=== PATIENT | female | born 1935 | race Caucasian/White ===

== ENCOUNTER 2022-11-03 16:35 | Inpatient (IN) ==
[2022-11-03] MEDS ORDERED: SODIUM CHLORIDE 0.9% 1000ML 1,000 ML IV ONE (17:17)
[2022-11-03] MEDS ORDERED: ALBUT/IPRATROP 3MG/0.5MG NEB 3 ML VIAL NEB STA (17:17)
[2022-11-03] MEDS ORDERED: methylPREDNISolone 125 MG/2 ML VIAL IV STA (17:17)
[2022-11-03] MEDS ORDERED: guaiFENesin 600 MG TABCR PO STA (17:18)
[2022-11-03] MEDS ORDERED: FAMOTIDINE 20MG IV PUSH 20 MG/5 ML SYR IV STA (17:19)
[2022-11-03] MEDS ORDERED: CEFEPIME 2,000 MG/20 ML VIAL IV STA (17:20)
--- NOTE | 2022-11-03 18:08 | XRay Report ---
XR chest 1V portable HISTORY: Sepsis COMPARISON: Chest 06/12/2015. FINDINGS: No pneumothorax. There are low lung volumes with mild elevation of the right hemidiaphragm. Mild central pulmonary vascular congestion without overt edema. Mitral annulus calcifications are no casey. No new focal lung consolidations. Severe degenerative changes and deformity within the right vandana ulder again noted. There are cervical spinal fusion hardware. The heart is mildly enlarged. IMPRESSION: Mild central pulmonary vascular congestion without overt edema ACT 112: Negative or not required by law. Electronically signed by: Ish Hutson M.D. 11/03/2022 6:05 PM
[2022-11-03] MEDS ORDERED: guaiFENesin SUGAR FREE 100 MG/5 ML UDC PO STA (18:15)
[2022-11-03] MEDS ORDERED: VANCOMYCIN CONSULT ACTIVE PRN ×2 (18:15→22:25)
[2022-11-03] MEDS ORDERED: VANCOMYCIN HCL 1,000 MG in SODIUM CHLORIDE 0.9% 500 ML IV ONE (18:15)
[2022-11-03 18:19] LABS: Base Excess VBG 2.4 mEq/L; HCO3 VBG 25 mmol/L; Oxygen Saturation VBG 95.1 %; PCO2 VBG 32 mmHg (38-50); PO2 VBG 67 mmHg
[2022-11-03 18:27] LABS: Basophils # (auto) 0.09 K/uL (0-0.2); Basophils % (auto) 0.4 %; Hematocrit (blood only) 40.1 % (34.1-44.9); Hemoglobin 14.3 g/dl (12.0-16.0); Immature Granulocytes # (auto) 0.27 K/uL (0.00-0.02); Immature Granulocytes % (auto) 1.2 %; Lymphocytes # (auto) 0.78 K/uL (1.2-3.4); Lymphocytes % (auto) 3.5 %; Mean Corpuscular Hemoglobin 32.1 pg (25.0-34.0); Mean Corpuscular Hgb Conc 35.7 g/dL (32.0-36.0); Mean Corpuscular Volume 90.1 fL (80.0-100.0); Mean Platelet Volume 8.9 fL (9.4-12.3); Monocytes # (auto) 1.65 K/uL (0.24-0.82); Monocytes % (auto) 7.4 %; Neutrophils % (auto) 87.5 %; Platelet Count 662 K/uL (130-400); RDW Coefficient of Variation 13.7 % (11.5-14.5); RDW Standard Deviation 45.1 fL (36.4-46.3); Red Blood Count 4.45 M/uL (3.93-5.22); White Blood Count 22.19 K/ul (4.8-10.8)
[2022-11-03 18:51] LABS: Influenza B virus by PCR Negative (Neg); RSV by PCR Negative (Neg); SARS CoV2 RNA(COVID-19) Ceph NEGATIVE (Negative)
[2022-11-03 18:54] LABS: Influenza A virus by PCR Positive (Neg)
[2022-11-03 19:09] LABS: Albumin Level 3.2 gm/dl (3.4-5.0); BUN Creatinine Ratio 31.7 (10-20); Bilirubin Direct 0.3 mg/dl (0-0.2); Bilirubin,Total 1.2 mg/dl (0.2-1.0); Calcium 8.2 mg/dl (8.5-10.1); Creatinine Clr Calc Pharmacy 38.5 ml/min; Est GFR (African American) 93.5 ml/min; Est GFR (Non-African American) 80.6 ml/min; Magnesium 1.7 mg/dl (1.7-2.4); Phosphorus 3.2 mg/dl (2.5-4.9); Potassium 4.5 mmol/L (3.5-5.1); Total Protein 6.4 gm/dl (6.0-8.3); Troponin I High Sensitivity 18.9 pg/ml (0-14)
--- NOTE | 2022-11-03 19:58 | History & Physical Report ---
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 Guaifenesin extended release 12 mg p.o. twice daily Nasal cannula oxygen, titrate to keep pulse ox around 95% Hyponatremia/SIADH- Sodium 125, serum osmolality 256, urine osmolality 446 Sodium chloride 1 g p.o. twice daily Fluid restriction 1500 mils Follow serial laboratories Atrial fibrillation/hypertension/CAD- The patient will be admitted to telemetry for serial cardiac enzymes, serial EKG's, cardiac rhythm monitoring. Continue apixaban, diltiazem, metoprolol tartrate Troponin 18.9 on admission, with follow-up 25.2. CKD stage III- Follow-up serially Ambulatory dysfunction- Will need PT/OT consult Hyperlipidemia- Continue atorvastatin History of Present Illness Chief Complaint: The patient is transferred to the emergency department from her acute rehab facility at [facility], due to worsening shortness of breath and new hypoxia. The patient has been diagnosed with influenza A a few days ago, and was noted to have worsening cough and chest congestion over the past week. She had been treated with Lasix briefly due to hypoxia, and possible volume overload, but this was discontinued when the patient became hyponatremic and appeared to be hypovolemic. Patient required 5 L nasal cannula to improve oxygenation today, and was referred to the ED for assessment. Primary Care Provider: Jose Mobley The patient is a 87-year-old female with a past medical history including chronic anticoagulation for atrial fibrillation, hyperlipidemia, hypertension, COPD, GERD and hyponatremia. She presents to the emergency department as noted above, with primary concerns related to hypoxia, hyponatremia, influenza A positivity and an elevated troponin. Significant abnormal laboratories: WBC 22.19, platelet 662, sodium 125, glucose 74, serum osmolality 256, urine osmolality 446, highly sensitive troponin 18.9, with follow-up 25.2, and albumin 3.2. Influenza A positive Patient is COVID-19 negative and influenza B and RSV negative Allergies Allergy/AdvReac Type Severity Reaction Status Date / Time No Known Allergies Allergy Unverified 11/03/22 22:17 Home Medications Medication Instructions Recorded Confirmed Type acetaminophen 325 mg tablet 650 mg PO Q4 PRN Pain 11/03/22 11/03/22 History (Tylenol) apixaban 2.5 mg tablet (Eliquis) 2.5 mg PO Q12 11/03/22 11/03/22 History atorvastatin 10 mg tablet 10 mg PO HS 11/03/22 11/03/22 History benzonatate 100 mg capsule 100 mg PO TID PRN Cough 11/03/22 11/03/22 History cefdinir 300 mg capsule 300 mg PO Q12H 11/03/22 11/03/22 History diltiazem HCl 180 mg 180 mg PO DAILY 11/03/22 11/03/22 History capsule,extended release 24 hr docusate sodium 100 mg capsule 100 mg PO BID 11/03/22 11/03/22 History fluticasone propionate 110 2 puff inhalation BID 11/03/22 11/03/22 History mcg/actuation HFA aerosol inhaler guaifenesin 100 mg/5 mL oral liquid 200 mg PO QID 11/03/22 11/03/22 History levalbuterol tartrate 45 2 inh inhalation Q4 11/03/22 11/03/22 History mcg/actuation aerosol inhaler lisinopril 5 mg tablet 5 mg PO DAILY 11/03/22 11/03/22 History metoprolol tartrate 25 mg tablet 25 mg PO Q8 11/03/22 11/03/22 History ondansetron HCl 4 mg tablet 4 mg PO Q4 PRN Nausea 11/03/22 11/03/22 History pantoprazole 40 mg tablet,delayed 49 mg PO HS 11/03/22 11/03/22 History release polyethylene glycol 3350 17 gram 17 g PO .QLUNCH PRN Constipation 11/03/22 11/03/22 History oral powder packet (Miralax) sennosides 8.6 mg-docusate sodium 1 tab-cap PO DAILY PRN Constipation 11/03/22 11/03/22 History 50 mg tablet (Senna-S) zinc sulfate 220 mg capsule 220 mg PO DAILY 11/03/22 11/03/22 History Past Med/Surg History Medical History (Updated 11/04/22 @ 03:55 by Bulmaro Jj MD) Atrial fibrillation Hyperlipidemia Hypertension On apixaban therapy Family History Other Family history non-contributory Social History Smoking Status: Never smoker Preferred Language: Grenadian Feels Safe at Home: Yes Review of Systems Review of Systems: The patient denies chest pain, palpitations, lower extremity swelling, sore throat, fevers, chills, sweats, nausea, vomiting, diarrhea , constipation, abdominal pain, pelvic pain, blood in urine or stool, dysuria, urinary frequency or urgency, loss of consciousness, rash, abnormal bruising or bleeding, focal weakness, numbness or tingling in arms or legs, back or neck pain, or night sweats. The review of systems is otherwise negative other than for that already noted above, and at least 10 systems have been reviewed. Physical Exam Physical Exam: The patient is awake, alert and oriented 3, well developed and well nourished, normocephalic and atraumatic, lying in bed and in no acute distress. HEENT--PERRL, EOMI, mucous membranes and oropharynx dry. Neck--supple. No JVD. No bruits. Thyroid normal, trachea midline, no adenopathy. Heart--normal S1 and S2. No murmurs, rubs or gallops. Lungs--coarse rhonchi, right base greater than left. No respiratory distress, no accessory muscle use. Abdomen--normal bowel sounds and soft. Nontender. Nondistended, no hernias or masses, no organomegaly. Extremities--no cyanosis or clubbing. No edema. Dermatologic--normal skin turgor, normal color, no abnormal lymph nodes, no rash. Neurologic--cranial nerves II through XII grossly intact. Rheumatologic--limited exam Psychiatric--normal affect. Results & Data Results & Data ([facility]) Vital Signs (Past 12 Hours) Vital Signs Temp Pulse Resp BP Pulse Ox O2 Del Method O2 Flow Rate 11/03/22 18:59 99 Oxyhood 10 11/03/22 18:59 10 L Non-rebreather 11/03/22 18:00 112 H 21 11/03/22 18:00 102/61 11/03/22 17:50 114 H 25 H 94 Oxymask 10 11/03/22 17:45 109/66 11/03/22 17:45 104 H 28 H 94 11/03/22 17:40 97 H 27 H 95 Oxymask 10 11/03/22 17:30 103 H 28 H 92 Oxymask 10 11/03/22 17:20 104 H 27 H 11/03/22 17:10 110 H 29 H 94 Oxymask 10 11/03/22 17:00 98 H 28 H 92 Oxymask 10 11/03/22 16:54 108 H 26 H 92 11/03/22 16:48 Oxymask 10 11/03/22 16:48 36.5 C 104 H 20 111/70 95 Oxymask 10 Laboratory Results Laboratory Results WBC 22.19 K/ul (4.8-10.8) H 11/03/22 18:16 RBC 4.45 M/uL (3.93-5.22) 11/03/22 18:16 Hgb 14.3 g/dl (12.0-16.0) 11/03/22 18:16 Hct 40.1 % (34.1-44.9) 11/03/22 18:16 MCV 90.1 fL (80.0-100.0) 11/03/22 18:16 MCH 32.1 pg (25.0-34.0) 11/03/22 18:16 MCHC 35.7 g/dL (32.0-36.0) 11/03/22 18:16 RDW Std Deviation 45.1 fL (36.4-46.3) 11/03/22 18:16 RDW Coeff of Jian 13.7 % (11.5-14.5) 11/03/22 18:16 Plt Count 662 K/uL (130-400) H 11/03/22 18:16 MPV 8.9 fL (9.4-12.3) L 11/03/22 18:16 Immature Gran % (Auto) 1.2 % 11/03/22 18:16 Neut % (Auto) 87.5 % 11/03/22 18:16 Lymph % (Auto) 3.5 % 11/03/22 18:16 [place] % (Auto) 7.4 % 11/03/22 18:16 Eos % (Auto) 0.0 % 11/03/22 18:16 Baso % (Auto) 0.4 % 11/03/22 18:16 Neut # (Auto) 19.40 K/uL (1.4-6.5) H 11/03/22 18:16 Lymph # (Auto) 0.78 K/uL (1.2-3.4) L 11/03/22 18:16 [place] # (Auto) 1.65 K/uL (0.24-0.82) H 11/03/22 18:16 Eos # (Auto) 0.00 K/uL (0-0.50) 11/03/22 18:16 Baso # (Auto) 0.09 K/uL (0-0.2) 11/03/22 18:16 Immature Gran # (Auto) 0.27 K/uL (0.00-0.02) H 11/03/22 18:16 VBG pH 7.50 (7.36-7.41) H 11/03/22 18:11 VBG pCO2 32 mmHg (38-50) L 11/03/22 18:11 VBG pO2 67 mmHg 11/03/22 18:11 VBG HCO3 25 mmol/L 11/03/22 18:11 VBG O2 Saturation 95.1 % 11/03/22 18:11 VBG Base Excess 2.4 mEq/L 11/03/22 18:11 Sodium 125 mmol/L (136-145) L 11/03/22 18:16 Potassium 4.5 mmol/L (3.5-5.1) 11/03/22 18:16 Chloride 89 mmol/L (98-107) L 11/03/22 18:16 Carbon Dioxide 23 mmol/L (21-32) 11/03/22 18:16 Anion Gap 13 (3-11) H 11/03/22 18:16 BUN 20 mg/dl (6-23) 11/03/22 18:16 Creatinine 0.63 mg/dl (0.6-1.2) 11/03/22 18:16 Est Cr Clr Drug Dosing 38.5 ml/min 11/03/22 18:16 Est GFR ( Amer) 93.5 ml/min 11/03/22 18:16 Est GFR (Non-Af Amer) 80.6 ml/min 11/03/22 18:16 BUN/Creatinine Ratio 31.7 (10-20) H 11/03/22 18:16 Glucose 74 mg/dl (70-99(Fasting)) 11/03/22 18:16 Osmolality 256 mOsm/kg (280-300) L 11/03/22 18:16 Lactate 1.4 mmol/L (0.4-2.0) 11/03/22 18:16 Calcium 8.2 mg/dl (8.5-10.1) L 11/03/22 18:16 Phosphorus 3.2 mg/dl (2.5-4.9) 11/03/22 18:16 Magnesium 1.7 mg/dl (1.7-2.4) 11/03/22 18:16 Total Bilirubin 1.2 mg/dl (0.2-1.0) H 11/03/22 18:16 Direct Bilirubin 0.3 mg/dl (0-0.2) H 11/03/22 18:16 AST 25 U/L (13-39) 11/03/22 18:16 ALT 28 U/L (7-52) 11/03/22 18:16 Alkaline Phosphatase 121 U/L (34-104) H 11/03/22 18:16 Troponin I High Sens 25.2 pg/ml (0-14) H 11/03/22 23:19 B-Natriuretic Peptide 239 pg/ml (0-100) H 11/03/22 18:16 Total Protein 6.4 gm/dl (6.0-8.3) 11/03/22 18:16 Albumin 3.2 gm/dl (3.4-5.0) L 11/03/22 18:16 Lipase 17 U/L (11-82) 11/03/22 18:16 Procalcitonin 0.44 ng/ml (0-0.5) 11/03/22 18:16 Urine Color Dark Yellow 11/03/22 19:53 Urine Appearance Clear (Clear) 11/03/22 19:53 Urine pH 5.0 (4.5-7.5) 11/03/22 19:53 Ur Specific [place] 1.020 (1.000-1.030) 11/03/22 19:53 Urine Protein 1+ (Negative) H 11/03/22 19:53 Urine Glucose (UA) Negative (Negative) 11/03/22 19:53 Urine Ketones 1+ (Negative) H 11/03/22 19:53 Urine Blood Negative (Negative) 11/03/22 19:53 Urine Nitrite Negative (Negative) 11/03/22 19:53 Urine Bilirubin Negative (Negative) 11/03/22 19:53 Urine Urobilinogen Negative (Negative) 11/03/22 19:53 Ur Leukocyte Esterase Trace (Negative) H 11/03/22 19:53 Urine WBC (Auto) 1-5 /hpf (0-5) 11/03/22 19:53 Urine RBC (Auto) 0-4 /hpf (0-4) 11/03/22 19:53 U Hyaline Cast (Auto) 1-5 /lpf (0-5) 11/03/22 19:53 U Epithel Cells (Auto) 20-30 /lpf (0-5) H 11/03/22 19:53 Urine Bacteria (Auto) Negative (Negative) 11/03/22 19:53 Urine Osmolality 446 mOsm/kg (500-800) L 11/03/22 19:53 Ur Random Sodium 15 mmol/L 11/03/22 19:53 SARS-CoV-2 (PCR) NEGATIVE (Negative) 11/03/22 18:05 Influenza Type A (PCR) Positive (Neg) A* 11/03/22 18:05 Influenza Type B (PCR) Negative (Neg) 11/03/22 18:05 RSV (RT-PCR) Negative (Neg) 11/03/22 18:05 Impressions Chest X-Ray 11/03/22 17:16 XR chest 1V portable HISTORY: Sepsis COMPARISON: Chest 06/12/2015. FINDINGS: No pneumothorax. There are low lung volumes with mild elevation of the right hemidiaphragm. Mild central pulmonary vascular congestion without overt edema. Mitral annulus calcifications are noted. No new focal lung consolidations. Severe degenerative changes and deformity within the right shoulder again noted. There are cervical spinal fusion hardware. The heart is mildly enlarged. IMPRESSION: Mild central pulmonary vascular congestion without overt edema ACT 112: Negative or not required by law. Electronically signed by: Ish Hutson M.D. 11/03/2022 6:05 PM Code Status & VTE Plan Code Status Full code VTE Prophylaxis Plan VTE Prophylaxis will be ordered: Yes (1) Pneumonia Laterality: right Lung location: middle lobe of lung Pneumonia type: due to unspecified organism Qualified Code(s): J18.9 - Pneumonia, unspecified organism
--- NOTE | 2022-11-03 20:28 | Emergency Department Note ---
Impression & Plan Acute respiratory failure with hypoxia, Leukocytosis, Hyponatremia, Influenza A, Pneumonia ED Provider Note NAME: GUILLERMINA CARDENAS AGE: 87 SEX: F ARRIVES VIA: Ambulance INFORMANT: Patient ED PROVIDER(S): Krishna Alejandra MD CHIEF COMPLAINT: SOB, referred. PLAN: Disposition: Admit MEDICAL DECISION MAKING: The patient is a pleasant 87-year-old woman with a past medical history of atrial fibrillation on Eliquis, hypertension, hyperlipidemia who presents to the emergency department via EMS from her acute rehab facility at [facility] where she has been for ambulatory dysfunction for evaluation of worsening shortness of breath and new hypoxia in the setting of being diagnosed with influenza A 2 days ago in the setting of having cough and congestion over the past week which did have some initial improvement but then over the past several days has declined. The patient has had nausea and decreased oral intake and diarrhea. She had initially been treated with Lasix due to her hypoxia and possible hypervolemia setting of A. fib but after 2 days of treatment this was discontinued as she appeared dehydrated and was not eating and drinking. Her sodium was also noted to decline down to 122 suspected to be related to her poor oral intake but did improve with oral salt tabs to 127 but then decline again to 124. Her O2 requirements gradually increased up to 5 L nasal cannula and so given her continued decline for the emergency department for further management. On arrival the patient is ill-appearing but no acute distress, afebrile with h eart rate in the 100s and vital signs otherwise stable. Her O2 saturation remained stable at 95% with oxime mask as she was noted to be mouth breathing. Patient has scant wheeze of bilateral lung zhang with rhonchi noted in the right mid lung zhang. No significant increased work of breathing. She appears clinically dry with dry cracked mucous membranes and skin tenting. EKG demonstrates atrial fibrillation without overt acute ischemia. Chest x-ray demonstrates vascular congestion however per my review does show interstitial thickening increased in the right midlung which given the context of the patient's presentation including influenza and leukocytosis suspicious for pneumonia. WBC 22K with neutrophil predominance and left shift. H/H within normal limits. Platelets 600K nonspecific. VBG with pH of 7.5 and PCO2 of 32. Chemistry without metabolic acidosis. Sodium 125 with normal glucose. Osmolality 256 with urine osmolality pending. Lactic acid 1.4, within normal limits. Total bili 1.2 with direct 11.3, nonspecific. AST and ALT are normal. Alk phos marginally above normal at 121. High-sensitivity troponin 18.9, nonspecific and BNP 239 nonspecific. Blood cultures have been drawn and the patient was treated with empiric cefepime and vancomycin. Additionally given Solu-Medrol and DuoNeb for component of bronchospasm. Case was discussed [place] [facility] [place], who will evaluate the patient for admission. Triage Nursing notes reviewed and agree them. Prior medical records reviewed Vital Signs: reviewed Differential diagnosis: Reactive airway disease, pneumonia, pneumothorax, COPD, CHF, infections, cardiac ischemia, pulmonary embolism, musculoskeletal, gastrointestinal, as well as other pathologies. ER treatment provided: See below. Diagnostics interpreted by me: ECG: Atrial fibrillation with RVR, 116 bpm, no ectopy, no overt ST elevation or depression, QTC 464, QRS 78. Cardiac Monitoring: An order for continuous cardiac monitoring was placed and demonstrated Atrial fibrillation with RVR, 116 bpm, no ectopy. Laboratory studies: See below Imaging studies: See below Consultation(s): Dr. Jj [facility] [place] HPI: The patient is a pleasant 87-year-old woman with a past medical history of atrial fibrillation on Eliquis, hypertension, hyperlipidemia who presents to the emergency department via EMS from her acute rehab facility at [facility] where she has been for ambulatory dysfunction for evaluation of worsening shortness of breath and new hypoxia in the setting of being diagnosed with influenza A 2 days ago in the setting of having cough and congestion over the past week which did have some initial improvement but then over the past several days has declined. The patient has had nausea and decreased oral intake and diarrhea. She had initially been treated with Lasix due to her hypoxia and possible hypervolemia setting of A. fib but after 2 days of treatment this was discontinued as she appeared dehydrated and was not eating and drinking. Her sodium was also noted to decline down to 122 suspected to be related to her poor oral intake but did improve with oral salt tabs to 127 but then decline again to 124. Her O2 requirements gradually increased up to 5 L nasal cannula and so given her continued decline for the emergency department for further management. ROS: See above HPI for pertinent positives & negatives. A total of 10 systems reviewed and were otherwise negative. VITALS:See Below PHYSICAL EXAMINATION: GENERAL: Awake, alert, ill-appearing, in no distress HENT: Normocephalic, atraumatic. Oropharynx with dry mucous membranes and o therwise unremarkable. EYES: Normal conjunctiva. Sclera non-icteric. NECK: Supple. No nuchal rigidity. FROM. No JVD. RESPIRATORY: Scant wheeze of bilateral lung zhang with rhonchi noted in the right mid lung zhang. No significant increased work of breathing. CARDIAC: Tachycardic rate, irregular rhythm. Extremities warm and well perfused. Pulses equal. ABDOMEN: Soft, non-distended. No tenderness to palpation. No rebound or guarding. No masses. RECTAL: Deferred. MUSCULOSKELETAL: Chest examination reveals no tenderness. The back is symmetrical on inspection without obvious abnormality. There is no CVA tenderness to palpation. No joint edema. LOWER EXTREMITIES: Calves are equal size bilaterally and non-tender. No edema. No discoloration. NEURO: Normal sensorium. No sensory or motor deficits noted. SKIN: Dry/tenting. No rash or jaundice noted. ED COURSE: Critical Care: I have personally spent greater than 35 minutes of critical care time in the direct management of this patient. This includes bedside care, interpretation of diagnostic studies, and testing, discussion with consultants, patient, and family members, and other required patient management activities. This 35 minutes is in excess of all separately billable procedures. Krishna Alejandra MD Past Med/Surg History Medical History Atrial fibrillation Hyperlipidemia Hypertension On apixaban therapy Family History Other Family history non-contributory Social History Smoking Status: Never smoker Preferred Language: Austrian Feels Safe at Home: Yes Allergies Allergies Allergy/AdvReac Type Severity Reaction Status Date / Time No Known Allergies Allergy Unverified 11/03/22 22:17 Home Meds Home Medications Medication Instructions Recorded Confirmed acetaminophen 325 mg tablet 650 mg PO Q4 PRN Pain 11/03/22 11/03/22 (Tylenol) apixaban 2.5 mg tablet (Eliquis) 2.5 mg PO Q12 11/03/22 11/03/22 atorvastatin 10 mg tablet 10 mg PO HS 11/03/22 11/03/22 benzonatate 100 mg capsule 100 mg PO TID PRN Cough 11/03/22 11/03/22 cefdinir 300 mg capsule 300 mg PO Q12H 11/03/22 11/03/22 diltiazem HCl 180 mg 180 mg PO DAILY 11/03/22 11/03/22 capsule,extended release 24 hr docusate sodium 100 mg capsule 100 mg PO BID 11/03/22 11/03/22 fluticasone propionate 110 2 puff inhalation BID 11/03/22 11/03/22 mcg/actuation HFA aerosol inhaler guaifenesin 100 mg/5 mL oral liquid 200 mg PO QID 11/03/22 11/03/22 levalbuterol tartrate 45 2 inh inhalation Q4 11/03/22 11/03/22 mcg/actuation aerosol inhaler lisinopril 5 mg tablet 5 mg PO DAILY 11/03/22 11/03/22 metoprolol tartrate 25 mg tablet 25 mg PO Q8 11/03/22 11/03/22 ondansetron HCl 4 mg tablet 4 mg PO Q4 PRN Nausea 11/03/22 11/03/22 pantoprazole 40 mg tablet,delayed 49 mg PO HS 11/03/22 11/03/22 release polyethylene glycol 3350 17 gram 17 g PO .QLUNCH PRN Constipation 11/03/22 11/03/22 oral powder packet (Miralax) sennosides 8.6 mg-docusate sodium 1 tab-cap PO DAILY PRN Constipation 11/03/22 11/03/22 50 mg tablet (Senna-S) zinc sulfate 220 mg capsule 220 mg PO DAILY 11/03/22 11/03/22 Results & Data (ED) Vital Signs Vital Signs - 24 hr 11/03/22 16:48 11/03/22 16:48 11/03/22 16:54 Temperature 36.5 C Temperature Source Oral Pulse Rate 104 H 108 H Pulse Rate from SpO2 Sensor 115 H Pulse Rhythm Regular Pulse Strength Normal Respiratory Rate 20 26 H Respiratory Effort / Characteristics Non-Labored Spontaneous Non-Labored Spontaneous Respiratory Depth Normal Normal Respiratory Pattern Regular Regular Blood Pressure 111/70 Blood Pressure Mean 83 Blood Pressure Position Lying Pulse Oximetry 95 92 Oxygen Delivery Method Oxymask Oxymask Oxygen Flow Rate 10 10 Sepsis Recent Fever Within 48 Hours No Sepsis New/Unexplained Change in Mental Status N/A Sepsis Action Taken by Nursing No Action Required 11/03/22 17:00 11/03/22 17:10 11/03/22 17:20 Temperature Temperature Source Pulse Rate 98 H 110 H 104 H Pulse Rate from SpO2 Sensor 113 H 106 H Pulse Rhythm Pulse Strength Respiratory Rate 28 H 29 H 27 H Respiratory Effort / Characteristics Respiratory Depth Respiratory Pattern Blood Pressure Blood Pressure Mean Blood Pressure Position Pulse Oximetry 92 94 Oxygen Delivery Method Oxymask Oxymask Oxygen Flow Rate 10 10 Sepsis Recent Fever Within 48 Hours Sepsis New/Unexplained Change in Mental Status Sepsis Action Taken by Nursing 11/03/22 17:30 11/03/22 17:40 11/03/22 17:45 Temperature Temperature Source Pulse Rate 103 H 97 H 104 H Pulse Rate from SpO2 Sensor 114 H 111 H 102 H Pulse Rhythm Pulse Strength Respiratory Rate 28 H 27 H 28 H Respiratory Effort / Characteristics Respiratory Depth Respiratory Pattern Blood Pressure Blood Pressure Mean Blood Pressure Position Pulse Oximetry 92 95 94 Oxygen Delivery Method Oxymask Oxymask Oxygen Flow Rate 10 10 Sepsis Recent Fever Within 48 Hours Sepsis New/Unexplained Change in Mental Status Sepsis Action Taken by Nursing 11/03/22 17:45 11/03/22 17:50 11/03/22 18:00 Temperature Temperature Source Pulse Rate 114 H Pulse Rate from SpO2 Sensor 108 H Pulse Rhythm Pulse Strength Respiratory Rate 25 H Respiratory Effort / Characteristics Respiratory Depth Respiratory Pattern Blood Pressure 109/66 102/61 Blood Pressure Mean 80 74 Blood Pressure Position Pulse Oximetry 94 Oxygen Delivery Method Oxymask Oxygen Flow Rate 10 Sepsis Recent Fever Within 48 Hours Sepsis New/Unexplained Change in Mental Status Sepsis Action Taken by Nursing 11/03/22 18:00 11/03/22 18:59 11/03/22 18:59 Temperature Temperature Source Pulse Rate 112 H Pulse Rate from SpO2 Sensor Pulse Rhythm Pulse Strength Respiratory Rate 21 Respiratory Effort / Characteristics Respiratory Depth Respiratory Pattern Blood Pressure Blood Pressure Mean Blood Pressure Position Pulse Oximetry 10 L 99 Oxygen Delivery Method Non-rebreather Oxyhood Oxygen Flow Rate 10 Sepsis Recent Fever Within 48 Hours Sepsis New/Unexplained Change in Mental Status Sepsis Action Taken by Nursing Laboratory Data Attestation: I reviewed the patient's lab results. Result diagrams: 11/03/22 18:16 11/03/22 18:16 Lab Results 11/03/22 11/03/22 11/03/22 Range/Units 18:05 18:11 18:16 WBC (4.8-10.8) K/ul RBC (3.93-5.22) M/uL Hgb (12.0-16.0) g/dl Hct (34.1-44.9) % MCV (80.0-100.0) fL MCH (25.0-34.0) pg MCHC (32.0-36.0) g/dL RDW Std Deviation (36.4-46.3) fL RDW Coeff of Jian (11.5-14.5) % Plt Count (130-400) K/uL MPV (9.4-12.3) fL Immature Gran % (Auto) % Neut % (Auto) % Lymph % (Auto) % Rock % (Auto) % Eos % (Auto) % Baso % (Auto) % Neut # (Auto) (1.4-6.5) K/uL Lymph # (Auto) (1.2-3.4) K/uL Rock # (Auto) (0.24-0.82) K/uL Eos # (Auto) (0-0.50) K/uL Baso # (Auto) (0-0.2) K/uL Immature Gran # (Auto) (0.00-0.02) K/uL VBG pH 7.50 H (7.36-7.41) VBG pCO2 32 L (38-50) mmHg VBG pO2 67 mmHg VBG HCO3 25 mmol/L VBG O2 Saturation 95.1 % VBG Base Excess 2.4 mEq/L Sodium 125 L (136-145) mmol/L Potassium 4.5 (3.5-5.1) mmol/L Chloride 89 L (98-107) mmol/L Carbon Dioxide 23 (21-32) mmol/L Anion Gap 13 H (3-11) BUN 20 (6-23) mg/dl Creatinine 0.63 (0.6-1.2) mg/dl Est Cr Clr Drug Dosing 38.5 ml/min Est GFR ( Amer) 93.5 ml/min Est GFR (Non-Af Amer) 80.6 ml/min BUN/Creatinine Ratio 31.7 H (10-20) Glucose 74 (70-99(Fasting)) mg/dl Osmolality (280-300) mOsm/kg Lactate (0.4-2.0) mmol/L Calcium 8.2 L (8.5-10.1) mg/dl Phosphorus 3.2 (2.5-4.9) mg/dl Magnesium 1.7 (1.7-2.4) mg/dl Total Bilirubin 1.2 H (0.2-1.0) mg/dl Direct Bilirubin 0.3 H (0-0.2) mg/dl AST 25 (13-39) U/L ALT 28 (7-52) U/L Alkaline Phosphatase 121 H (34-104) U/L Troponin I High Sens 18.9 H (0-14) pg/ml B-Natriuretic Peptide (0-100) pg/ml Total Protein 6.4 (6.0-8.3) gm/dl Albumin 3.2 L (3.4-5.0) gm/dl Lipase 17 (11-82) U/L Procalcitonin (0-0.5) ng/ml Urine Color Urine Appearance (Clear) Urine pH (4.5-7.5) Ur Specific [place] (1.000-1.030) Urine Protein (Negative) Urine Glucose (UA) (Negative) Urine Ketones (Negative) Urine Blood (Negative) Urine Nitrite (Negative) Urine Bilirubin (Negative) Urine Urobilinogen (Negative) Ur Leukocyte Esterase (Negative) Urine WBC (Auto) (0-5) /hpf Urine RBC (Auto) (0-4) /hpf U Hyaline Cast (Auto) (0-5) /lpf U Epithel Cells (Auto) (0-5) /lpf Urine Bacteria (Auto) (Negative) Urine Osmolality (500-800) mOsm/kg Ur Random Sodium mmol/L SARS-CoV-2 (PCR) NEGATIVE (Negative) Influenza Type A (PCR) Positive A* (Neg) Influenza Type B (PCR) Negative (Neg) RSV (RT-PCR) Negative (Neg) 11/03/22 11/03/22 11/03/22 Range/Units 18:16 18:16 18:16 WBC 22.19 H (4.8-10.8) K/ul RBC 4.45 (3.93-5.22) M/uL Hgb 14.3 (12.0-16.0) g/dl Hct 40.1 (34.1-44.9) % MCV 90.1 (80.0-100.0) fL MCH 32.1 (25.0-34.0) pg MCHC 35.7 (32.0-36.0) g/dL RDW Std Deviation 45.1 (36.4-46.3) fL RDW Coeff of Jian 13.7 (11.5-14.5) % Plt Count 662 H (130-400) K/uL MPV 8.9 L (9.4-12.3) fL Immature Gran % (Auto) 1.2 % Neut % (Auto) 87.5 % Lymph % (Auto) 3.5 % Rock % (Auto) 7.4 % Eos % (Auto) 0.0 % Baso % (Auto) 0.4 % Neut # (Auto) 19.40 H (1.4-6.5) K/uL Lymph # (Auto) 0.78 L (1.2-3.4) K/uL Rock # (Auto) 1.65 H (0.24-0.82) K/uL Eos # (Auto) 0.00 (0-0.50) K/uL Baso # (Auto) 0.09 (0-0.2) K/uL Immature Gran # (Auto) 0.27 H (0.00-0.02) K/uL VBG pH (7.36-7.41) VBG pCO2 (38-50) mmHg VBG pO2 mmHg VBG HCO3 mmol/L VBG O2 Saturation % VBG Base Excess mEq/L Sodium (136-145) mmol/L Potassium (3.5-5.1) mmol/L Chloride (98-107) mmol/L Carbon Dioxide (21-32) mmol/L Anion Gap (3-11) BUN (6-23) mg/dl Creatinine (0.6-1.2) mg/dl Est Cr Clr Drug Dosing ml/min Est GFR ( Amer) ml/min Est GFR (Non-Af Amer) ml/min BUN/Creatinine Ratio (10-20) Glucose (70-99(Fasting)) mg/dl Osmolality (280-300) mOsm/kg Lactate 1.4 (0.4-2.0) mmol/L Calcium (8.5-10.1) mg/dl Phosphorus (2.5-4.9) mg/dl Magnesium (1.7-2.4) mg/dl Total Bilirubin (0.2-1.0) mg/dl Direct Bilirubin (0-0.2) mg/dl AST (13-39) U/L ALT (7-52) U/L Alkaline Phosphatase (34-104) U/L Troponin I High Sens (0-14) pg/ml B-Natriuretic Peptide (0-100) pg/ml Total Protein (6.0-8.3) gm/dl Albumin (3.4-5.0) gm/dl Lipase (11-82) U/L Procalcitonin 0.44 (0-0.5) ng/ml Urine Color Urine Appearance (Clear) Urine pH (4.5-7.5) Ur Specific [place] (1.000-1.030) Urine Protein (Negative) Urine Glucose (UA) (Negative) Urine Ketones (Negative) Urine Blood (Negative) Urine Nitrite (Negative) Urine Bilirubin (Negative) Urine Urobilinogen (Negative) Ur Leukocyte Esterase (Negative) Urine WBC (Auto) (0-5) /hpf Urine RBC (Auto) (0-4) /hpf U Hyaline Cast (Auto) (0-5) /lpf U Epithel Cells (Auto) (0-5) /lpf Urine Bacteria (Auto) (Negative) Urine Osmolality (500-800) mOsm/kg Ur Random Sodium mmol/L SARS-CoV-2 (PCR) (Negative) Influenza Type A (PCR) (Neg) Influenza Type B (PCR) (Neg) RSV (RT-PCR) (Neg) 11/03/22 11/03/22 11/03/22 Range/Units 18:16 18:16 19:53 WBC (4.8-10.8) K/ul RBC (3.93-5.22) M/uL Hgb (12.0-16.0) g/dl Hct (34.1-44.9) % MCV (80.0-100.0) fL MCH (25.0-34.0) pg MCHC (32.0-36.0) g/dL RDW Std Deviation (36.4-46.3) fL RDW Coeff of Jian (11.5-14.5) % Plt Count (130-400) K/uL MPV (9.4-12.3) fL Immature Gran % (Auto) % Neut % (Auto) % Lymph % (Auto) % Rock % (Auto) % Eos % (Auto) % Baso % (Auto) % Neut # (Auto) (1.4-6.5) K/uL Lymph # (Auto) (1.2-3.4) K/uL Rock # (Auto) (0.24-0.82) K/uL Eos # (Auto) (0-0.50) K/uL Baso # (Auto) (0-0.2) K/uL Immature Gran # (Auto) (0.00-0.02) K/uL VBG pH (7.36-7.41) VBG pCO2 (38-50) mmHg VBG pO2 mmHg VBG HCO3 mmol/L VBG O2 Saturation % VBG Base Excess mEq/L Sodium (136-145) mmol/L Potassium (3.5-5.1) mmol/L Chloride (98-107) mmol/L Carbon Dioxide (21-32) mmol/L Anion Gap (3-11) BUN (6-23) mg/dl Creatinine (0.6-1.2) mg/dl Est Cr Clr Drug Dosing ml/min Est GFR ( Amer) ml/min Est GFR (Non-Af Amer) ml/min BUN/Creatinine Ratio (10-20) Glucose (70-99(Fasting)) mg/dl Osmolality 256 L (280-300) mOsm/kg Lactate (0.4-2.0) mmol/L Calcium (8.5-10.1) mg/dl Phosphorus (2.5-4.9) mg/dl Magnesium (1.7-2.4) mg/dl Total Bilirubin (0.2-1.0) mg/dl Direct Bilirubin (0-0.2) mg/dl AST (13-39) U/L ALT (7-52) U/L Alkaline Phosphatase (34-104) U/L Troponin I High Sens (0-14) pg/ml B-Natriuretic Peptide 239 H (0-100) pg/ml Total Protein (6.0-8.3) gm/dl Albumin (3.4-5.0) gm/dl Lipase (11-82) U/L Procalcitonin (0-0.5) ng/ml Urine Color Dark Yellow Urine Appearance Clear (Clear) Urine pH 5.0 (4.5-7.5) Ur Specific [place] 1.020 (1.000-1.030) Urine Protein 1+ H (Negative) Urine Glucose (UA) Negative (Negative) Urine Ketones 1+ H (Negative) Urine Blood Negative (Negative) Urine Nitrite Negative (Negative) Urine Bilirubin Negative (Negative) Urine Urobilinogen Negative (Negative) Ur Leukocyte Esterase Trace H (Negative) Urine WBC (Auto) 1-5 (0-5) /hpf Urine RBC (Auto) 0-4 (0-4) /hpf U Hyaline Cast (Auto) 1-5 (0-5) /lpf U Epithel Cells (Auto) 20-30 H (0-5) /lpf Urine Bacteria (Auto) Negative (Negative) Urine Osmolality (500-800) mOsm/kg Ur Random Sodium mmol/L SARS-CoV-2 (PCR) (Negative) Influenza Type A (PCR) (Neg) Influenza Type B (PCR) (Neg) RSV (RT-PCR) (Neg) 11/03/22 11/03/22 Range/Units 19:53 19:53 WBC (4.8-10.8) K/ul RBC (3.93-5.22) M/uL Hgb (12.0-16.0) g/dl Hct (34.1-44.9) % MCV (80.0-100.0) fL MCH (25.0-34.0) pg MCHC (32.0-36.0) g/dL RDW Std Deviation (36.4-46.3) fL RDW Coeff of Jian (11.5-14.5) % Plt Count (130-400) K/uL MPV (9.4-12.3) fL Immature Gran % (Auto) % Neut % (Auto) % Lymph % (Auto) % Rock % (Auto) % Eos % (Auto) % Baso % (Auto) % Neut # (Auto) (1.4-6.5) K/uL Lymph # (Auto) (1.2-3.4) K/uL Rock # (Auto) (0.24-0.82) K/uL Eos # (Auto) (0-0.50) K/uL Baso # (Auto) (0-0.2) K/uL Immature Gran # (Auto) (0.00-0.02) K/uL VBG pH (7.36-7.41) VBG pCO2 (38-50) mmHg VBG pO2 mmHg VBG HCO3 mmol/L VBG O2 Saturation % VBG Base Excess mEq/L Sodium (136-145) mmol/L Potassium (3.5-5.1) mmol/L Chloride (98-107) mmol/L Carbon Dioxide (21-32) mmol/L Anion Gap (3-11) BUN (6-23) mg/dl Creatinine (0.6-1.2) mg/dl Est Cr Clr Drug Dosing ml/min Est GFR ( Amer) ml/min Est GFR (Non-Af Amer) ml/min BUN/Creatinine Ratio (10-20) Glucose (70-99(Fasting)) mg/dl Osmolality (280-300) mOsm/kg Lactate (0.4-2.0) mmol/L Calcium (8.5-10.1) mg/dl Phosphorus (2.5-4.9) mg/dl Magnesium (1.7-2.4) mg/dl Total Bilirubin (0.2-1.0) mg/dl Direct Bilirubin (0-0.2) mg/dl AST (13-39) U/L ALT (7-52) U/L Alkaline Phosphatase (34-104) U/L Troponin I High Sens (0-14) pg/ml B-Natriuretic Peptide (0-100) pg/ml Total Protein (6.0-8.3) gm/dl Albumin (3.4-5.0) gm/dl Lipase (11-82) U/L Procalcitonin (0-0.5) ng/ml Urine Color Urine Appearance (Clear) Urine pH (4.5-7.5) Ur Specific [place] (1.000-1.030) Urine Protein (Negative) Urine Glucose (UA) (Negative) Urine Ketones (Negative) Urine Blood (Negative) Urine Nitrite (Negative) Urine Bilirubin (Negative) Urine Urobilinogen (Negative) Ur Leukocyte Esterase (Negative) Urine WBC (Auto) (0-5) /hpf Urine RBC (Auto) (0-4) /hpf U Hyaline Cast (Auto) (0-5) /lpf U Epithel Cells (Auto) (0-5) /lpf Urine Bacteria (Auto) (Negative) Urine Osmolality 446 L (500-800) mOsm/kg Ur Random Sodium 15 mmol/L SARS-CoV-2 (PCR) (Negative) Influenza Type A (PCR) (Neg) Influenza Type B (PCR) (Neg) RSV (RT-PCR) (Neg) Administered Medications Aspirin (Aspirin 325 Mg Ectab) 325 mg PO QPM ELISA Stop: 12/03/22 22:24 Last Admin: 11/03/22 23:50 Dose: 325 mg Documented By: KARLAS Heparin Sodium (Porcine) (Heparin Sod 5,000 Unit/0.5 Ml Vial) 5,000 units SQ Q12 ELISA Stop: 12/03/22 22:24 Last Admin: 11/03/22 23:51 Dose: 5,000 units Documented By: MARCO Pantoprazole Sodium (Pantoprazole 40 Mg Tab) 40 mg PO QPM ELISA Stop: 12/03/22 22:24 Last Admin: 11/03/22 23:51 Dose: 40 mg Documented By: MARCO Simvastatin (Simvastatin 20 Mg Tab) 20 mg PO QPM ELISA Stop: 12/03/22 22:24 Last Admin: 11/03/22 23:51 Dose: 20 mg Documented By: MARCO Discontinued Medications Albuterol (Albut/Ipratrop 3mg/0.5mg Neb 3 Ml Vial) 3 ml NEB NOW STA; Protocol Stop: 11/03/22 17:18 Last Admin: 11/03/22 17:39 Dose: 3 ml Documented By: [id number] Guaifenesin (Guaifenesin 600 Mg Tabcr) 600 mg PO NOW STA Stop: 11/03/22 17:19 Last Admin: 11/03/22 18:29 Dose: Not Given Documented By: [id number] Guaifenesin (Guaifenesin Sugar Free 100 Mg/5 Ml Udc) 600 mg PO NOW STA Stop: 11/03/22 18:16 Last Admin: 11/03/22 19:05 Dose: 600 mg Documented By: MARCO Sodium Chloride (Nss 1000ml) 1,000 mls @ 999 mls/hr IV .Q1H1M ONE Stop: 11/03/22 18:17 Last Infusion: 11/03/22 18:44 Dose: 0 mls/hr Documented By: [id number] Admin: 11/03/22 17:39 Dose: 999 mls/hr Documented By: [id number] Famotidine (Pepcid 20mg Iv Push) 20 mg in 5 mls @ 2.5 mls/min IV NOW STA Stop: 11/03/22 17:20 Last Admin: 11/03/22 18:16 Dose: 2.5 mls/min Documented By: [id number] Cefepime HCl (Maxipime) 2,000 mg in 20 mls @ 5 mls/min IV NOW STA; Protocol Stop: 11/03/22 17:23 Last Admin: 11/03/22 18:16 Dose: 5 mls/min Documented By: [id number] Vancomycin HCl 1,000 mg/ (Sodium Chloride) 520 mls @ 200 mls/hr IV NOW ONE Stop: 11/03/22 20:50 Last Admin: 11/03/22 18:52 Dose: 200 mls/hr Documented By: [id number] Methylprednisolone (Methylprednisolone 125 Mg/2 Ml Vial) 125 mg IV NOW STA Stop: 11/03/22 17:18 Last Admin: 11/03/22 18:16 Dose: 125 mg Documented By: [id number] Imaging Data Radiologist's Impression: Chest X-Ray 11/03/22 17:16 XR chest 1V portable HISTORY: Sepsis COMPARISON: Chest 06/12/2015. FINDINGS: No pneumothorax. There are low lung volumes with mild elevation of the right hemidiaphragm. Mild central pulmonary vascular congestion without overt edema. Mitral annulus calcifications are noted. No new focal lung consolidations. Severe degenerative changes and deformity within the right shoulder again noted. There are cervical spinal fusion hardware. The heart is mildly enlarged. IMPRESSION: Mild central pulmonary vascular congestion without overt edema ACT 112: Negative or not required by law. Electronically signed by: Ish Hutson M.D. 11/03/2022 6:05 PM Discharge Plan Visit Data Chief Complaint: Shortness of Breath/Dyspnea Stated Complaint: SOB ED Provider: Krishna Alejandra Discharge Problem: Acute respiratory failure with hypoxia, Leukocytosis, Hyponatremia, Influenza A, Pneumonia Patient Disposition: Admitted As Inpatient Discharge Instructions Interventions: ED Discharge Assessment Last Done: 11/03/22 22:26 : Pneumonia Qualifiers: Pneumonia type: due to unspecified organism Laterality: right Lung location: middle lobe of lung Qualified Code(s): J18.9 - Pneumonia, unspecified organism
[2022-11-03 20:51] LABS: Appearance Urine Clear (Clear); Bacteria Urine Automated Negative (Negative); Bilirubin Urine Negative (Negative); Blood Urine Negative (Negative); Color Urine Dark Yellow; Epithelial Cell Urine Auto 20-30 /lpf (0-5); Glucose Urine UA Negative (Negative); Ketones Urine 1+ (Negative); Leukocyte Esterase Urine Trace (Negative); Nitrite Urine Negative (Negative); Protein Urine 1+ (Negative); RBC Urine Automated 0-4 /hpf (0-4); Urobilinogen Urine Negative (Negative)
[2022-11-03] MEDS ORDERED: ACETAMINOPHEN 325 MG TAB PO PRN (22:25)
[2022-11-03] MEDS ORDERED: MAGNESIUM HYDROXIDE SUSP 30 ML UDC PO PRN (22:25)
[2022-11-03] MEDS ORDERED: ONDANSETRON INJ 2 MG/ML 2 ML VIAL IV PRN (22:25)
[2022-11-03] MEDS ORDERED: ALUMINUM/MAGNESIUM SUSP 30 ML UDC PO PRN (22:25)
[2022-11-03] MEDS ORDERED: oxyCODONE HCL IR 5 MG TAB (IMMEDIATE RELEASE) PO PRN (22:31)
[2022-11-03] MEDS: ASPIRIN 325 MG ECTAB PO SCH (23:50)
[2022-11-03] MEDS: HEPARIN SOD 5,000 UNIT/0.5 ML VIAL SQ SCH (23:51)
[2022-11-03] MEDS: PANTOprazole 40 MG TAB PO SCH (23:51)
[2022-11-03] MEDS: SIMVASTATIN 20 MG TAB PO SCH (23:51)
[2022-11-04] MEDS: methylPREDNISolone 40 MG in SYRINGE 0 ML IV SCH ×2 (01:29→09:08)
[2022-11-04 03:57] LABS: Hematocrit (blood only) 38.6 % (34.1-44.9); Hemoglobin 13.5 g/dl (12.0-16.0); Mean Corpuscular Hemoglobin 31.9 pg (25.0-34.0); Mean Corpuscular Volume 91.3 fL (80.0-100.0); Mean Platelet Volume 8.9 fL (9.4-12.3); Platelet Count 749 K/uL (130-400); RDW Coefficient of Variation 13.8 % (11.5-14.5); RDW Standard Deviation 46.4 fL (36.4-46.3); Red Blood Count 4.23 M/uL (3.93-5.22); White Blood Count 22.88 K/ul (4.8-10.8)
--- NOTE | 2022-11-04 04:01 | Billing Data ---
Date of Service November 04, 2022 Coding Level of Care Code 55283 Initial Inpt Care Lvl 3
[2022-11-04 04:27] LABS: Acanthocytes 2+; Basophils # (auto) 0.08 K/uL (0-0.2); Basophils % (auto) 0.3 %; Echinocytes 2+; Immature Granulocytes # (auto) 0.15 K/uL (0.00-0.02); Immature Granulocytes % (auto) 0.7 %; Lymphocytes # (auto) 0.62 K/uL (1.2-3.4); Lymphocytes % (auto) 2.7 %; Monocytes # (auto) 0.28 K/uL (0.24-0.82); Monocytes % (auto) 1.2 %; Neutrophils # (auto) 21.75 K/uL (1.4-6.5); Neutrophils % (auto) 95.1 %; Toxic Granulation 2+
[2022-11-04 05:10] LABS: Albumin Level 2.9 gm/dl (3.4-5.0); BUN Creatinine Ratio 35.7 (10-20); Bilirubin,Total 0.8 mg/dl (0.2-1.0); Calcium 7.7 mg/dl (8.5-10.1); Creatinine Clr Calc Pharmacy 43.4 ml/min; Est GFR (African American) 97.2 ml/min; Est GFR (Non-African American) 83.8 ml/min; Globulin 2.9 gm/dl (2.5-4.0); Magnesium 1.8 mg/dl (1.7-2.4); Potassium 4.1 mmol/L (3.5-5.1); Total Protein 5.8 gm/dl (6.0-8.3)
[2022-11-04] MEDS: CEFEPIME 2,000 MG in SYRINGE 0 ML IV SCH ×2 (05:49→18:46)
[2022-11-04] MEDS ORDERED: VANCOMYCIN HCL 750 MG in SODIUM CHLORIDE 0.9% 250 ML IV SCH (06:00)
[2022-11-04] MEDS: ALBUT/IPRATROP 3MG/0.5MG NEB 3 ML VIAL NEB SCH ×4 (06:09→19:53)
[2022-11-04] MEDS: HEPARIN SOD 5,000 UNIT/0.5 ML VIAL SQ SCH ×2 (09:08→20:14)
[2022-11-04] MEDS: ATENOLOL 50 MG TABLET PO SCH (09:08)
[2022-11-04] MEDS: CHOLECALCIFEROL 1,000 UNITS 25 MCG TAB PO SCH (09:08)
[2022-11-04] MEDS: SODIUM CHLORIDE 1 GM TABLET PO SCH ×2 (09:08→20:14)
[2022-11-04] MEDS: CALCIUM 600MG + VIT D 400 IU TAB PO SCH (09:08)
--- NOTE | 2022-11-04 10:56 | Pharmacy Report ---
Pharmacy PK ABX Note - Date of Service November 04, 2022 - Assessment and Plan Assessment 87 year old F receiving Vancomycin and Cefepime for treatment of pneumonia. * Presents from [facility] secondary to worsening shortness of breath. Influenza A positive. Possible secondary bacterial pneumonia. * Afebrile. Lactate normal. Procal 0.44. Leukocytosis of 22k. Renal fxn at baseline. * Blood cultures pending. MRSA swab pending (will be after abx). Plan Vancomycin * Loading dose: 1000 mg IV x 1 * Maintenance dose: 750 mg IV every 18 hours * Regimen is predicted to achieve target AUC/DIANE of 400-600 mg/L.hr * Random level ordered for: 11/06/22 Cefepime * Target dose: 2000 mg IV every 8 hours * Renal dose: 2000 mg IV every 12 hours for CrCl 30-60 mL/min Pharmacy will continue to follow and will adjust dose/frequency as necessary. Thank you. Pharmacy has transitioned to AUC monitoring for vancomycin. AUC/DIANE is the preferred PK/PD target and is associated with decreased risk of nephrotoxicity compared to traditional trough targets.
--- NOTE | 2022-11-04 12:15 | Electrocardiogram Report ---
Test Reason : Blood Pressure : / mmHG Vent. Rate : 116 BPM Atrial Rate : 081 BPM P-R Int : 000 ms QRS Dur : 078 ms QT Int : 334 ms P-R-T Axes : 000 -44 034 degrees QTc Int : 464 ms Poor data quality, interpretation may be adversely affected Atrial fibrillation with rapid ventricular response Left axis deviation Low voltage QRS Possible Anterolateral infarct , age undetermined Abnormal ECG When compared with ECG of 12-JUN-2015 16:32, Significant changes have occurred Confirmed by Daryl Hudson ([id number]) on 11/04/2022 12:15:19 PM Referred By: REFERRED SELF Confirmed By:Daryl Hudson
--- NOTE | 2022-11-04 12:26 | Electrocardiogram Report ---
Test Reason : Blood Pressure : / mmHG Vent. Rate : 089 BPM Atrial Rate : 441 BPM P-R Int : 000 ms QRS Dur : 076 ms QT Int : 374 ms P-R-T Axes : 000 -50 033 degrees QTc Int : 455 ms Atrial fibrillation Left axis deviation Anteroseptal infarct (cited on or before 03-NOV-2022) Abnormal ECG When compared with ECG of 03-NOV-2022 16:40, (unconfirmed) No significant change was found Confirmed by Daryl Hudson ([id number]) on 11/04/2022 12:26:21 PM Referred By: REFERRED SELF Confirmed By:Daryl Hudson
[2022-11-04] MEDS ORDERED: OSELTAMIVIR PHOSPHATE 75 MG CAP PO STA (14:55)
[2022-11-04] MEDS: ASPIRIN 325 MG ECTAB PO SCH (20:14)
[2022-11-04] MEDS: SIMVASTATIN 20 MG TAB PO SCH (20:14)
[2022-11-04] MEDS: PANTOprazole 40 MG TAB PO SCH (20:14)
[2022-11-04] MEDS: OSELTAMIVIR PHOSPHATE SUSP 30 MG/5 ML UDP PO SCH (20:19)
[2022-11-04 21:42] LABS: Base Excess VBG -3.2 mEq/L; HCO3 VBG 20 mmol/L; Oxygen Saturation VBG 92.8 %; PCO2 VBG 29 mmHg (38-50); PO2 VBG 61 mmHg; pH VBG 7.44 (7.36-7.41)
--- NOTE | 2022-11-04 21:59 | Hospitalist Progress Note ---
Date of Service November 04, 2022 Assessment & Plan (1) Influenza A: Plan: Influenza A/secondary bacterial pneumonia involving right lung- WIll add tamiflu. Patient continues to require nasal cannula. WIll stop steroids as this may worsen mortality. will stop vanco as MRSA nares in negative. continue cefepime 2 g IV every 12 hours Duonebs every 4 hours while awake and every 2 hours when necessary. Guaifenesin extended release 12 mg p.o. twice daily Nasal cannula oxygen, titrate to keep pulse ox around 95% (2) SIADH (syndrome of inappropriate ADH production): Plan: Hyponatremia/SIADH- Sodium 125, serum osmolality 256, urine osmolality 446 Sodium chloride 1 g p.o. twice daily Fluid restriction 1500 mils sodium improved to 128 (3) Pneumonia: Plan: appears likely more viral than bacterial. (4) Hyponatremia: Plan: as above (5) Acute respiratory failure with hypoxia: (6) Atrial fibrillation: Plan: Atrial fibrillation/hypertension/CAD- The patient will be admitted to telemetry for serial cardiac enzymes, serial EKG's, cardiac rhythm monitoring. Continue apixaban, diltiazem, metoprolol tartrate Troponin 18.9 on admission, with follow-up 25.2. (7) Elevated troponin: (8) On apixaban therapy: (9) Hypertension: (10) Hyperlipidemia: Plan: continue statin Plan CKD stage III- Follow-up serially Ambulatory dysfunction- Will need PT/OT consult Hyperlipidemia- Continue atorvastatin Admission and Anticipated Discharge Date Admission Date: November 03, 2022 Subjective 87 yo female reports feeling better than yesterday but still complaining of generalized malaise and shortness of breath at rest. Review of Systems Review of Systems: All systems reviewed & are unremarkable except as noted in HPI & below Physical Exam Physical Exam: The patient is awake, alert and oriented 3, well developed and well nourished, normocephalic and atraumatic, lying in bed and in no acute distress. HEENT--PERRL, EOMI, mucous membranes and oropharynx dry. Neck--supple. No JVD. No bruits. Thyroid normal, trachea midline, no adenopathy. Heart--normal S1 and S2. No murmurs, rubs or gallops. Lungs--coarse rhonchi, right base greater than left. No respiratory distress, no accessory muscle use. Abdomen--normal bowel sounds and soft. Nontender. Nondistended, no hernias or masses, no organomegaly. Extremities--no cyanosis or clubbing. No edema. Dermatologic--normal skin turgor, normal color, no abnormal lymph nodes, no rash. Neurologic--cranial nerves II through XII grossly intact. Rheumatologic--limited exam Psychiatric--normal affect. Results & Data Results & Data ([facility]) Vital Signs (Past 12 Hours) Vital Signs Temp Pulse Pulse Resp BP BP Pulse Ox 11/04/22 20:00 11/04/22 19:54 77 16 95 11/04/22 19:49 36.8 C 120 H 18 117/62 95 11/04/22 18:51 36.5 C 130 H 20 129/68 96 11/04/22 16:45 125/75 11/04/22 16:45 129 H 24 92 11/04/22 15:45 116/73 11/04/22 15:45 129 H 20 90 11/04/22 15:30 136 H 23 92 11/04/22 15:30 118/57 L 11/04/22 15:15 122 H 28 H 95 11/04/22 15:15 123/83 11/04/22 15:00 108 H 24 91 11/04/22 15:00 127/68 11/04/22 14:45 102 H 22 90 11/04/22 14:45 115/68 11/04/22 14:30 114 H 19 90 11/04/22 14:30 115/60 11/04/22 14:15 103 H 23 92 11/04/22 14:15 124/69 11/04/22 14:00 101 H 22 91 11/04/22 14:00 112/64 11/04/22 13:45 126 H 23 92 11/04/22 13:45 114/69 11/04/22 13:30 117 H 22 91 11/04/22 13:30 110/69 11/04/22 13:00 122 H 23 91 11/04/22 13:00 120/68 11/04/22 12:45 127 H 23 92 11/04/22 12:45 128/72 11/04/22 12:30 118 H 24 92 11/04/22 12:30 113/62 11/04/22 12:15 115 H 22 92 12/26/22 12:15 110/68 11/04/22 11:45 106 H 23 96 11/04/22 11:45 109/64 11/04/22 11:30 108/59 L 11/04/22 11:30 118 H 17 94 11/04/22 11:15 104/83 11/04/22 11:15 106 H 23 91 11/04/22 10:45 90 22 91 11/04/22 15:16 115 H 18 94 11/04/22 11:29 118 H 20 91 O2 Del Method O2 Flow Rate 11/04/22 20:00 Nasal Cannula 4 11/04/22 19:54 Nasal Cannula 4 11/04/22 19:49 Nasal Cannula 4 11/04/22 18:51 Nasal Cannula 4 11/04/22 16:45 11/04/22 16:45 11/04/22 15:45 11/04/22 15:45 11/04/22 15:30 11/04/22 15:30 11/04/22 15:15 11/04/22 15:15 11/04/22 15:00 11/04/22 15:00 11/04/22 14:45 11/04/22 14:45 11/04/22 14:30 11/04/22 14:30 11/04/22 14:15 11/04/22 14:15 11/04/22 14:00 11/04/22 14:00 11/04/22 13:45 11/04/22 13:45 11/04/22 13:30 11/04/22 13:30 11/04/22 13:00 11/04/22 13:00 11/04/22 12:45 11/04/22 12:45 11/04/22 12:30 11/04/22 12:30 11/04/22 12:15 11/04/22 12:15 11/04/22 11:45 11/04/22 11:45 11/04/22 11:30 11/04/22 11:30 11/04/22 11:15 11/04/22 11:15 11/04/22 10:45 11/04/22 15:16 Nasal Cannula 4 11/04/22 11:29 Oxymask 6 PG Care Time/CCT Total # of Minutes Spent Total Time Spent with Patient: Total time spent is greater than 50% in coordination of care (as documented) at patient's floor/unit and/or counseling patient: Coding Level of Care Code 69327 Subseq Hosp Care Lvl 3 Diagnoses Influenza A J10.1 SIADH (syndrome of inappropriate ADH production) E22.2 Pneumonia J18.9 Laterality: right Lung location: middle lobe of lung Pneumonia type: due to unspecified organism Hyponatremia E87.1 Acute respiratory failure with hypoxia J96.01 Atrial fibrillation I48.91 Elevated troponin R77.8 On apixaban therapy Z79.01 Hypertension I10 Hyperlipidemia E78.5 (1) Pneumonia Laterality: right Lung location: middle lobe of lung Pneumonia type: due to unspecified organism Qualified Code(s): J18.9 - Pneumonia, unspecified organism
[2022-11-04 22:08] LABS: BUN Creatinine Ratio 45.8 (10-20); Calcium 7.4 mg/dl (8.5-10.1); Creatinine Clr Calc Pharmacy 41.1 ml/min; Est GFR (African American) 95.5 ml/min; Est GFR (Non-African American) 82.4 ml/min; Potassium 4.3 mmol/L (3.5-5.1)
[2022-11-04] MEDS ORDERED: SODIUM CHLORIDE 3 % 100 ML IV ONE (22:33)
[2022-11-04] MEDS ORDERED: STAT IV STA ×2 (22:33→22:34)
[2022-11-04] MEDS ORDERED: SODIUM CHLORIDE 3 % 50 ML IV ONE (22:34)
[2022-11-05 06:22] LABS: Hematocrit (blood only) 34.1 % (34.1-44.9); Hemoglobin 12.3 g/dl (12.0-16.0); Mean Corpuscular Hemoglobin 31.7 pg (25.0-34.0); Mean Corpuscular Hgb Conc 36.1 g/dL (32.0-36.0); Mean Corpuscular Volume 87.9 fL (80.0-100.0); Mean Platelet Volume 8.6 fL (9.4-12.3); Platelet Count 829 K/uL (130-400); RDW Coefficient of Variation 13.8 % (11.5-14.5); RDW Standard Deviation 44.3 fL (36.4-46.3); Red Blood Count 3.88 M/uL (3.93-5.22); White Blood Count 23.06 K/ul (4.8-10.8)
[2022-11-05] MEDS: CEFEPIME 2,000 MG in SYRINGE 0 ML IV SCH ×2 (06:36→17:14)
[2022-11-05 06:39] LABS: Albumin Level 2.9 gm/dl (3.4-5.0); Bilirubin,Total 0.7 mg/dl (0.2-1.0); Calcium 7.6 mg/dl (8.5-10.1); Creatinine Clr Calc Pharmacy 48.4 ml/min; Est GFR (African American) 100.9 ml/min; Globulin 2.8 gm/dl (2.5-4.0); Potassium 4.1 mmol/L (3.5-5.1); Total Protein 5.7 gm/dl (6.0-8.3)
[2022-11-05 06:49] LABS: Acanthocytes 2+; Basophils # (auto) 0.07 K/uL (0-0.2); Basophils % (auto) 0.3 %; Echinocytes 2+; Immature Granulocytes # (auto) 0.36 K/uL (0.00-0.02); Immature Granulocytes % (auto) 1.6 %; Lymphocytes # (auto) 0.73 K/uL (1.2-3.4); Lymphocytes % (auto) 3.2 %; Monocytes # (auto) 0.69 K/uL (0.24-0.82); Neutrophils # (auto) 21.21 K/uL (1.4-6.5); Neutrophils % (auto) 91.9 %; Toxic Granulation 1+
[2022-11-05] MEDS: ALBUT/IPRATROP 3MG/0.5MG NEB 3 ML VIAL NEB SCH ×3 (07:23→15:08)
[2022-11-05] MEDS: SODIUM CHLORIDE 1 GM TABLET PO SCH ×3 (09:34→20:06)
[2022-11-05] MEDS: HEPARIN SOD 5,000 UNIT/0.5 ML VIAL SQ SCH ×2 (09:34→20:05)
[2022-11-05] MEDS: CALCIUM 600MG + VIT D 400 IU TAB PO SCH (09:34)
[2022-11-05] MEDS: ATENOLOL 50 MG TABLET PO SCH (09:34)
[2022-11-05] MEDS: CHOLECALCIFEROL 1,000 UNITS 25 MCG TAB PO SCH (09:34)
[2022-11-05] MEDS: OSELTAMIVIR PHOSPHATE SUSP 30 MG/5 ML UDP PO SCH ×2 (09:51→20:12)
--- NOTE | 2022-11-05 10:38 | XRay Report ---
XR chest 1V portable CLINICAL HISTORY: FluA infection, hypoxia COMPARISON STUDY: Chest radiograph June 12, 2015 and November 03, 2022. FINDINGS: Severe right glenohumeral joint osteophytes. There are postoperative findings within the ce rvical spine. Mild elevation of the right hemidiaphragm is unchanged. Cardiomediastinal silhouette is stable. Pulmonary vascular congestion has improved. There is no evidence for overt pulmonary edema. No pneumothorax or pleural effusion. There is no consolidation to suggest pneumonia. IMPRESSION: 1. Cardiomegaly. Slight decrease in pulmonary vascular congestion. 2. No consolidation to suggest pneumonia. ACT 112: Negative or not required by law. Electronically signed by: Joey Dhillon M.D. 11/05/2022 10:36 AM
--- NOTE | 2022-11-05 11:02 | Nephrology Consultation ---
Date of Consultation November 05, 2022 Assessment & Plan (1) SIADH (syndrome of inappropriate ADH production): * Hypoosmolar hyponatremia on the basis of severe infection/Influenza A * Continue 1L/day free water fluid restriction * Discussed importance of taking NaCl tablets w/ patient today. Will ask staffing administrator to split tablets or crush and place in food to ensure that she is taking them as prescribed * Increase NaCl to 1g po TID * PRP, Uosm in am (2) Hypertension: * BP is relatively low. CORRINA inhibitor has been appropriately held (3) Atrial fibrillation: * On apixaban, diltiazem (4) Influenza A: * On oseltamivir and droplet precautions History of Present Illness Reason for Consultation: Hyponatremia Attending Physician: Salazar Sims History of Present Illness Ms. Bernal is an 87 year old white female who is seen at the request of Dr. Sims for evaluation of hyponatremia. Medical records in the EMR were reviewed today and are summarized as follows: Ms. Bernal resides in [place], [place]. Her PCP is Dr. Jose Mobley. Her medical history is significant for atrial fibrillation (apixaban), hyperlipidemia, hypertension (diltiazem & lisinopril), COPD, GERD and hyponatremia. Baseline sodium is unknown. Ms. Bernal was transferred from [facility] to [facility] 11/03/22 for evaluation of progressive dyspnea. Evaluation revealed Influenza A +, COVID/RSV -, serum Na 125 mmol/L, Uosm 446. She was placed on steroid therapy, empiric antibiotic therapy and a 1L/day oral free water restriction. NaCl 1g po BID was ordered but staffing administrator states this morning that patient refused NaCl tablets due to their size. Yesterday serum sodium dropped to 119 mmol/L. 100 cc 3% NaCl was administered IV. This morning the 1g NaCl tablet was split in half and Ms. Bernal was able to swallow it without difficulty. Ms. Bernal c/o extreme fatigue. Allergies Allergy/AdvReac Type Severity Reaction Status Date / Time No Known Allergies Allergy Unverified 11/03/22 22:17 Home Medications Medication Instructions Recorded Confirmed Type acetaminophen 325 mg tablet 650 mg PO Q4 PRN Pain 11/03/22 11/03/22 History (Tylenol) apixaban 2.5 mg tablet (Eliquis) 2.5 mg PO Q12 11/03/22 11/03/22 History atorvastatin 10 mg tablet 10 mg PO HS 11/03/22 11/03/22 History benzonatate 100 mg capsule 100 mg PO TID PRN Cough 11/03/22 11/03/22 History cefdinir 300 mg capsule 300 mg PO Q12H 11/03/22 11/03/22 History diltiazem HCl 180 mg 180 mg PO DAILY 11/03/22 11/03/22 History capsule,extended release 24 hr docusate sodium 100 mg capsule 100 mg PO BID 11/03/22 11/03/22 History fluticasone propionate 110 2 puff inhalation BID 11/03/22 11/03/22 History mcg/actuation HFA aerosol inhaler guaifenesin 100 mg/5 mL oral liquid 200 mg PO QID 11/03/22 11/03/22 History levalbuterol tartrate 45 2 inh inhalation Q4 11/03/22 11/03/22 History mcg/actuation aerosol inhaler lisinopril 5 mg tablet 5 mg PO DAILY 11/03/22 11/03/22 History metoprolol tartrate 25 mg tablet 25 mg PO Q8 11/03/22 11/03/22 History ondansetron HCl 4 mg tablet 4 mg PO Q4 PRN Nausea 11/03/22 11/03/22 History pantoprazole 40 mg tablet,delayed 49 mg PO HS 11/03/22 11/03/22 History release polyethylene glycol 3350 17 gram 17 g PO .QLUNCH PRN Constipation 11/03/22 11/03/22 History oral powder packet (Miralax) sennosides 8.6 mg-docusate sodium 1 tab-cap PO DAILY PRN Constipation 11/03/22 11/03/22 History 50 mg tablet (Senna-S) zinc sulfate 220 mg capsule 220 mg PO DAILY 11/03/22 11/03/22 History Patient History Medical History Atrial fibrillation Hyperlipidemia Hypertension On apixaban therapy Family History Other Family history non-contributory Social History Smoking Status: Unknown if ever smoked Hx Alcohol Use: No Hx Substance Use: No Preferred Language: Ukrainian Communication Ability: Effective Wax Ball Knock [employer] Worker Required: No Beliefs That Will Affect Care: None Current Living Situation: Family Feels Safe at Home: Yes Assistive Devices: Walker Review of Systems Constitutional: + body aches, + malaise and + weakness; no fever Eyes: no problem reported Ear, Nose, Mouth, Throat: no problem reported Respiratory: + cough and + dyspnea Cardiovascular: no chest pain Gastrointestinal: no vomiting and no diarrhea/loose stools Genitourinary: no dysuria Physical Exam Constitutional: not in distress Eyes: PERRL, conjunctivae normal, anicteric sclerae ENMT: external ear and nose normal, oropharynx normal Neck: trachea midline, no thyromegaly Respiratory: Auscultation: + rhonchi Cardiovascular: Rate/Rhythm: regular rate and + tachycardic Gastrointestinal (Abdomen): normal bowel sounds, soft, nontender, no hepatosplenomegaly Skin: no rashes, warm and dry normal turgor Neurologic: Speech / Cognition: normal speech and normal cognition Results & Data ([facility]) Vital Signs (Past 12 Hours) Vital Signs Temp Pulse Resp BP Pulse Ox O2 Del Method O2 Flow Rate 11/05/22 10:18 118 H 18 93 Room Air 11/05/22 08:00 Room Air 11/05/22 07:24 102 H 18 92 Room Air 11/05/22 07:07 36.5 C 119 H 19 113/88 91 Nasal Cannula 4 11/05/22 03:43 36.6 C 93 H 20 113/63 93 Nasal Cannula 4 11/04/22 23:31 36.9 C 126 H 22 113/60 94 Nasal Cannula 4 Laboratory Results Laboratory Tests 11/03/22 11/03/22 11/03/22 18:05 19:53 19:53 WBC Hgb Hct Plt Count Neut # (Auto) Toxic Granulation Acanthocytes (Spur) Sodium Potassium Chloride Carbon Dioxide BUN Creatinine Glucose Calcium Albumin Urine Color Dark Yellow Urine Appearance Clear Urine pH 5.0 Ur Specific Logan 1.020 Urine Protein 1+ H Urine Glucose (UA) Negative Urine Ketones 1+ H Urine Blood Negative Urine RBC (Auto) 0-4 Urine Osmolality 446 L SARS-CoV-2 (PCR) NEGATIVE Influenza Type A (PCR) Positive A* Laboratory Tests 11/03/22 18:05 Influenza Type B (PCR) Negative RSV (RT-PCR) Negative 11/05/22 11/05/22 06:04 06:04 WBC 23.06 H Hgb 12.3 Hct 34.1 Plt Count 829 H Neut # (Auto) 21.21 H Toxic Granulation 1+ Acanthocytes (Spur) 2+ Sodium 126 L Potassium 4.1 Chloride 96 L Carbon Dioxide 21 BUN 24 H Creatinine 0.50 L Glucose 139 H Calcium 7.6 L Albumin 2.9 L Urine Color Urine Appearance Urine pH Ur Specific Logan Urine Protein Urine Glucose (UA) Urine Ketones Urine Blood Urine RBC (Auto) Urine Osmolality SARS-CoV-2 (PCR) Influenza Type A (PCR) PG Care Time/CCT Total # of Minutes Spent Total Time Spent with Patient: Total time spent is greater than 50% in coordination of care (as documented) at patient's floor/unit and/or counseling patient: Coding Level of Care Code 22723 Inpt Consult Level 5 Diagnoses SIADH (syndrome of inappropriate ADH production) E22.2 Hypertension I10 Atrial fibrillation I48.91 Influenza A J10.1
--- NOTE | 2022-11-05 17:18 | Electrocardiogram Report ---
Test Reason : Blood Pressure : / mmHG Vent. Rate : 206 BPM Atrial Rate : 163 BPM P-R Int : 000 ms QRS Dur : 080 ms QT Int : 252 ms P-R-T Axes : 000 -40 045 degrees QTc Int : 466 ms Atrial fibrillation Left axis deviation Low voltage QRS Cannot rule out Anteroseptal infarct (cited on or before 03-NOV-2022) Abnormal ECG When compared with ECG of 04-NOV-2022 07:55, Current undetermined rhythm precludes rhythm comparison, needs review Nonspecific T wave abnormality now evident in Inferior leads Confirmed by Bruno Villalba ([id number]) on 11/05/2022 5:18:05 PM Referred By: REFERRED SELF Confirmed By:Rudi Villalba
[2022-11-05] MEDS ORDERED: ALBUT/IPRATROP 3MG/0.5MG NEB 3 ML VIAL NEB PRN (18:34)
[2022-11-05] MEDS: SIMVASTATIN 20 MG TAB PO SCH (20:05)
[2022-11-05] MEDS: METOPROLOL TARTRATE 50 MG TAB PO SCH (20:05)
[2022-11-05] MEDS: PANTOprazole 40 MG TAB PO SCH (20:06)
[2022-11-05] MEDS: ASPIRIN 325 MG ECTAB PO SCH (20:06)
--- NOTE | 2022-11-05 22:14 | Hospitalist Progress Note ---
Date of Service November 05, 2022 Assessment & Plan (1) Influenza A: Plan: Day #2 of tamiflu plan 5 day course appears to have secondary bacterial infection - cont IV abx supportive care (2) Pneumonia: Plan: she has dense b/l crackles on exam low threshold for CT chest in am if still feeling poorly, WBC count still elevated, etc cont cefepime (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): Plan: lowest Na 119 last pm improved s/p 3% saline Cont sodium chloride 1 gram TID Fluid restriction 1500cc BMP am (4) Hyponatremia: Plan: as above in #3 (5) Acute respiratory failure with hypoxia: Plan: 2nd to fluA infection and suspected bacterial superinfection (6) Atrial fibrillation: Plan: Typically is on metoprolol TID + cardizem 180mg daily The diltiazem is on hold Change atenolol to metoprolol Eliquis on hold ? uncertain reason (7) Elevated troponin: Plan: due to myocardial demand ischemia in setting of Flu A infection, etc no evidence of ACS (8) On apixaban therapy: Plan: for a.fib (9) Hypertension: Plan: stopping atenolol, changing to metoprolol to improve her a.fib rate control (10) Hyperlipidemia: Plan: continue statin (11) Leukocytosis: Plan: 2nd to bacterial pneumonia/superinfection? trend CBC daily (12) Thrombocytosis: Plan: likely reactive to her infection serial CBCs if the high platelet count persists -- check Fe studies (Fe def can cause thrombocytosis) (13) Protein calorie malnutrition: Plan: unknown amount of weight loss of late (14) DVT prophylaxis: Plan: heparin 5000 BID Plan PT, OT Admission and Anticipated Discharge Date Admission Date: November 03, 2022 Subjective overnight required 3% saline for Na level that dropped to 119 acutely by report was having difficulties with taking the salt tablets during my visit she was resting she feels very tired, fatigued, and weak appetite is very poor continues with cough and some sputum production has mild dyspnea states she was in [facility] prior to [facility] she injured both feet -- right foot more so than left foot no fractures were seen on x-rays at [place] she denies any prior h/o asthma or chronic lung disease denies dysphagia Review of Systems Review of Systems: gen - no fevers or chills cv - no chest pain ; tele - a.fib, rates >100 pulm - no hemoptysis ; no wheezes GI - no abd pain or vomiting; some nausea from naCl tabs Physical Exam Physical Exam: gen - very thin, cachectic, muscle wasting; coughing; otherwise NAD mouth - MM dry neck - no JVD heart - irregularly irregular, s1 s2, no murmur lungs - diffuse crackles b/l extending 1/2 [address] up back; no wheeze back - kyphosis abd - soft NT ND BS+ ext - no edema, pulses 2+ b/l Results & Data Results & Data ([facility]) Vital Signs (Past 12 Hours) Vital Signs Temp Pulse Resp BP Pulse Ox O2 Del Method 11/05/22 19:55 111 H 117/79 11/05/22 19:24 36.8 C 115 H 20 98/62 L 97 Room Air 11/05/22 16:52 36.8 C 120 H 22 121/74 94 Room Air 11/05/22 15:08 108 H 17 93 Room Air 11/05/22 11:42 36.6 C 119 H 19 104/67 94 Room Air 11/05/22 10:18 118 H 18 93 Room Air Laboratory Results Laboratory Results - last 24 hr 11/05/22 11/05/22 11/05/22 06:04 06:04 Unknown WBC 23.06 H RBC 3.88 L Hgb 12.3 Hct 34.1 MCV 87.9 MCH 31.7 MCHC 36.1 H RDW Std Deviation 44.3 RDW Coeff of Jian 13.8 Plt Count 829 H MPV 8.6 L Immature Gran % (Auto) 1.6 Neut % (Auto) 91.9 Lymph % (Auto) 3.2 Boyd % (Auto) 3.0 Eos % (Auto) 0.0 Baso % (Auto) 0.3 Neut # (Auto) 21.21 H Lymph # (Auto) 0.73 L Boyd # (Auto) 0.69 Eos # (Auto) 0.00 Baso # (Auto) 0.07 Immature Gran # (Auto) 0.36 H Toxic Granulation 1+ Echinocytes 2+ Acanthocytes (Spur) 2+ Sodium 126 L Potassium 4.1 Chloride 96 L Carbon Dioxide 21 Anion Gap 9 BUN 24 H Creatinine 0.50 L Est Cr Clr Drug Dosing 48.4 Est GFR ( Amer) 100.9 Est GFR (Non-Af Amer) 87.0 BUN/Creatinine Ratio 48.0 H Glucose 139 H Calcium 7.6 L Magnesium 2.0 Total Bilirubin 0.7 AST 52 H ALT 41 Alkaline Phosphatase 113 H Total Protein 5.7 L Albumin 2.9 L Globulin 2.8 Albumin/Globulin Ratio 1.0 Ur Random Sodium 15 PG Care Time/CCT Total # of Minutes Spent Total Time Spent with Patient: Total time spent is greater than 50% in coordination of care (as documented) at patient's floor/unit and/or counseling patient: Coding Level of Care Code 67130 Subseq Hosp Care Lvl 3 Diagnoses Influenza A J10.1 Pneumonia J18.9 Laterality: right Lung location: middle lobe of lung Pneumonia type: due to unspecified organism SIADH (syndrome of inappropriate ADH production) E22.2 Hyponatremia E87.1 Acute respiratory failure with hypoxia J96.01 Atrial fibrillation I48.91 Elevated troponin R77.8 On apixaban therapy Z79.01 Hypertension I10 Hyperlipidemia E78.5 Leukocytosis D72.829 Thrombocytosis D75.839 Protein calorie malnutrition E46 DVT prophylaxis Z29.9 (1) Pneumonia Laterality: right Lung location: middle lobe of lung Pneumonia type: due to unspecified organism Qualified Code(s): J18.9 - Pneumonia, unspecified organism
[2022-11-06 06:11] LABS: Hemoglobin 12.6 g/dl (12.0-16.0); Mean Corpuscular Hemoglobin 31.9 pg (25.0-34.0); Mean Corpuscular Volume 91.1 fL (80.0-100.0); Mean Platelet Volume 8.5 fL (9.4-12.3); Nucleated RBC # (auto) 0.04 K/uL (0-0); Nucleated RBC % (auto) 0.2 %; Platelet Count 843 K/uL (130-400); RDW Coefficient of Variation 13.9 % (11.5-14.5); RDW Standard Deviation 46.4 fL (36.4-46.3); Red Blood Count 3.95 M/uL (3.93-5.22); White Blood Count 24.11 K/ul (4.8-10.8)
[2022-11-06] MEDS: CEFEPIME 2,000 MG in SYRINGE 0 ML IV SCH ×2 (06:14→17:31)
[2022-11-06 06:42] LABS: Albumin Globulin Ratio 1.2 (0.9-2); BUN Creatinine Ratio 43.4 (10-20); Bilirubin,Total 0.7 mg/dl (0.2-1.0); Calcium 8.2 mg/dl (8.5-10.1); Creatinine Clr Calc Pharmacy 45.1 ml/min; Est GFR (African American) 98.9 ml/min; Est GFR (Non-African American) 85.4 ml/min; Globulin 2.6 gm/dl (2.5-4.0); Potassium 4.4 mmol/L (3.5-5.1); Total Protein 5.6 gm/dl (6.0-8.3)
[2022-11-06 06:53] LABS: Acanthocytes 2+; Basophils # (auto) 0.11 K/uL (0-0.2); Basophils % (auto) 0.5 %; Echinocytes 2+; Immature Granulocytes # (auto) 0.47 K/uL (0.00-0.02); Immature Granulocytes % (auto) 1.9 %; Lymphocytes # (auto) 1.89 K/uL (1.2-3.4); Lymphocytes % (auto) 7.8 %; Monocytes % (auto) 5.8 %; Neutrophils # (auto) 20.24 K/uL (1.4-6.5); Polychromasia 1+
[2022-11-06] MEDS: HEPARIN SOD 5,000 UNIT/0.5 ML VIAL SQ SCH ×2 (08:20→20:32)
[2022-11-06] MEDS: CHOLECALCIFEROL 1,000 UNITS 25 MCG TAB PO SCH (08:20)
[2022-11-06] MEDS: CALCIUM 600MG + VIT D 400 IU TAB PO SCH (08:20)
[2022-11-06] MEDS: METOPROLOL TARTRATE 50 MG TAB PO SCH ×2 (08:21→20:38)
[2022-11-06] MEDS: SODIUM CHLORIDE 1 GM TABLET PO SCH ×3 (08:21→20:31)
--- NOTE | 2022-11-06 08:53 | Nephrology Progress Note ---
Date of Service November 06, 2022 Assessment & Plan (1) SIADH (syndrome of inappropriate ADH production): Plan: * Hypoosmolar hyponatremia on the basis of severe infection/Influenza A * Continue 1L/day free water fluid restriction * Continue NaCl 1g po TID * Monitor PRP * Serum sodium has almost normalized. Continue current therapy and reduce NaCl once serum Na 135 - 145 mmol/L range * No further Nephrology evaluation indicated at this time. Will sign off. Please call if further assistance is needed (2) Hypertension: Plan: * BP is relatively low. CORRINA inhibitor has been appropriately held (3) Atrial fibrillation: Plan: * On apixaban, diltiazem (4) Influenza A: Plan: * On oseltamivir and droplet precautions Admission and Anticipated Discharge Date Admission Date: November 03, 2022 Subjective Mrs. Bernal reports weakness and mild dyspnea. She is now taking her salt tablets as prescribed and denies GI upset Review of Systems Constitutional: + body aches, + malaise and + weakness; no fever Eyes: no problem reported Ear, Nose, Mouth, Throat: no problem reported Respiratory: + cough and + dyspnea Cardiovascular: no chest pain Gastrointestinal: no vomiting and no diarrhea/loose stools Genitourinary: no dysuria Physical Exam Constitutional: not in distress Eyes: PERRL, conjunctivae normal, anicteric sclerae ENMT: external ear and nose normal, oropharynx normal Neck: trachea midline, no thyromegaly Respiratory: Auscultation: + rhonchi Cardiovascular: Rate/Rhythm: regular rate and + tachycardic Gastrointestinal (Abdomen): normal bowel sounds, soft, nontender, no hepatosplenomegaly Skin: no rashes, warm and dry normal turgor Neurologic: Speech / Cognition: normal speech and normal cognition Results & Data ([facility]) Vital Signs (Past 12 Hours) Vital Signs Temp Pulse Pulse Resp BP Pulse Ox O2 Del Method 11/06/22 07:59 36.5 C 89 17 122/84 92 Room Air 11/06/22 03:42 36.5 C 103 H 16 117/77 97 Room Air 11/06/22 00:51 99 H 94 Room Air 11/05/22 23:14 36.5 C 114 H 18 128/65 92 Room Air 11/05/22 22:59 108 H Laboratory Results Laboratory Tests 11/06/22 05:56 Sodium 134 L Potassium 4.4 Chloride 103 Carbon Dioxide 25 BUN 23 Creatinine 0.53 L Glucose 91 Calcium 8.2 L Albumin 3.0 L PG Care Time/CCT Total # of Minutes Spent Total Time Spent with Patient: Total time spent is greater than 50% in coordination of care (as documented) at patient's floor/unit and/or counseling patient: Coding Level of Care Code 26622 Subseq Hosp Care Lvl 3 Diagnoses SIADH (syndrome of inappropriate ADH production) E22.2 Hypertension I10 Atrial fibrillation I48.91 Influenza A J10.1
[2022-11-06] MEDS: OSELTAMIVIR PHOSPHATE SUSP 30 MG/5 ML UDP PO SCH ×2 (10:05→20:31)
[2022-11-06] MEDS ORDERED: OPTIRAY 320 500ml IV ONE (12:56)
--- NOTE | 2022-11-06 13:20 | CT Scan Report ---
CT angio chest PE protocol CT DOSE: 212.54 mGy.cm HISTORY: 87 years-old Female with leukocytosis, hypoxia, fluA; eval PE, pneumonia. Acute hypoxia wi th shortness of breath TECHNIQUE: Multiple CTA images of the chest were obtained after the intravenous administration of 108 ml Optiray. Coronal and sagittal MIPS were obtained from the axial data set and were submitted for review. All measurements were obtained according to NASCET criteria. A dose lowering technique was u tilized adhering to the principles of ALARA. COMPARISON: Chest radiograph 11/05/2022 FINDINGS: CTA: Moderate cardiomegaly, notably with dilation of the left atrium. No pericardial effusion. Extensive c oronary artery calcifications. There is atherosclerosis of the aorta. Suboptimal evaluation of the th oracic aorta secondary to contrast bolus timing. There is atherosclerosis of the aorta without aneury sm identified. The segmental and subsegmental pulmonary arterial branches within the lung bases are n ot well opacified secondary to contrast bolus timing and therefore are difficult to evaluate. Probabl e mixing artifact noted within the right lower lobe pulmonary arterial branches. CT CHEST: Heterogeneous right lobe of the thyroid. No lymphadenopathy identified. Trace pleural effusions. No p neumothorax identified. Mild bronchial wall thickening with moderate right greater than left bibasila r mucous plugging and patchy consolidation which is most pronounced in the lower lobes and to a lesse r extent within the right greater than left upper and right middle lobes. No acute process of the imaged upper abdomen. Mild generalized body wall edema. Degenerative changes of the spine and shoulders. Cervical spinal fusion hardware. Subacute to chronic appearing anterior r ight seventh rib fractures. There are a few likely subacute appearing anterior left-sided rib fractur es. IMPRESSION: 1. Limited exam secondary to contrast bolus timing. The segmental and subsegmental pulmonary arterial branches within the lung bases are not well visualized. Probable mixing artifact within the right lo wer lobe pulmonary arterial branches. As a precautionary measure, correlation with lower extremity Do ppler may be considered. 2. Right greater than left bibasilar predominant mucus plugging with bibasilar and patchy right lung airspace opacities which are suspicious for aspiration pneumonitis versus multifocal pneumonia. 3. Trace pleural effusions. 4. Cardiomegaly. 5. Additional findings as above. ACT 112: Negative or not required by law. The above report was generated using voice recognition software. It may contain grammatical, syntax o r spelling errors. Electronically signed by: Eulogio Henriquez M.D. 11/06/2022 1:19 PM
[2022-11-06] MEDS: guaiFENesin 600 MG TABCR PO SCH ×2 (14:14→20:31)
[2022-11-06] MEDS: SODIUM CHLOR 7% 4 ML NEB NEB SCH ×2 (14:54→19:21)
[2022-11-06] MEDS ORDERED: METOPROLOL TARTRATE 50 MG TAB PO STA (16:52)
[2022-11-06] MEDS ORDERED: PIPERACILLIN/TAZOBACTAM 3.375 GM in DEXTROSE 5% 100 ML IV ONE (18:15)
[2022-11-06] MEDS: ADVANCED PROBIOTIC 1250 MG CAPSULE PO SCH (19:16)
--- NOTE | 2022-11-06 20:18 | Ultrasound Report ---
BILATERAL LOWER EXTREMITY VENOUS DOPPLER HISTORY: Acute shortness of breath abnormal CTA chest; DVT? COMPARISON STUDY: None. FINDINGS: There is normal compressibility, flow, and augmentation within the bilateral lower extremit y deep venous systems. IMPRESSION: No DVT within the right or left lower extremity. ACT 112: Negative or not required by law. Electronically signed by: Eulogio Henriquez M.D. 11/06/2022 8:16 PM
[2022-11-06] MEDS ORDERED: COUGH DROP (SUGAR FREE) LOZ 24 LOZ/1 BOX BUCCAL PRN (20:27)
[2022-11-06] MEDS: ASPIRIN 325 MG ECTAB PO SCH (20:31)
[2022-11-06] MEDS: SIMVASTATIN 20 MG TAB PO SCH (20:31)
[2022-11-06] MEDS: PANTOprazole 40 MG TAB PO SCH (20:32)
--- NOTE | 2022-11-06 22:24 | Hospitalist Progress Note ---
Date of Service November 06, 2022 Assessment & Plan (1) Influenza A: Plan: Day #3 of tamiflu plan 5 day course appears to have secondary bacterial infection - cont IV abx - se below supportive care (2) Pneumonia: Plan: CT chest with b/l basilar pneumonia bacterial superinfection in setting of her influenza Mucoid impaction also seen lower airways no obvious PEs seen dopplers of legs without DVT despite several days of IV cefepime her leukocytosis remains and she feels poorly will stop cefepime, change to IV zosyn added saline nebs BID added chest PT twice daily added mucinex 600mg BID consider duonebs although no wheezing noted on yesterday or today's exams repeat CBC am (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): Plan: lowest Na 119 last pm improved s/p 3% saline, fluid restriction to 1500cc/day, and NaCL tabs 1gm TID BMP am (4) Hyponatremia: Plan: as above in #3 low Na was also likely contributing to fatigue in addition to #1, #2 (5) Acute respiratory failure with hypoxia: Plan: 2nd to fluA infection and suspected bacterial superinfection slow improvement (6) Atrial fibrillation: Plan: Typically is on metoprolol TID + cardizem 180mg daily per admission records The diltiazem is on hold For some reason had been receiving atenolol Changed atenolol to metoprolol Have titrated the metoprolol Plan 75mg BID starting in am Eliquis on hold ? uncertain reason - resume in am if stable and patient improving (7) Elevated troponin: Plan: due to myocardial demand ischemia in setting of Flu A infection, etc no evidence of ACS (8) On apixaban therapy: Plan: for a.fib - see #6 above (9) Hypertension: Plan: controlled (10) Hyperlipidemia: Plan: continue statin (11) Leukocytosis: Plan: 2nd to bacterial pneumonia/superinfection trend CBC daily (12) Thrombocytosis: Plan: likely reactive to her infection serial CBCs if the high platelet count persists -- check Fe studies (Fe def can cause thrombocytosis) (13) Protein calorie malnutrition: Plan: unknown amount of weight loss of late she has muscle wasting is cachectic etc add MVI add boost (14) DVT prophylaxis: Plan: heparin 5000 BID (15) Injury of foot: Plan: had injured both feet at home in [place] severe pain both feet and difficulty walking was initially hospitalized at [facility] she states her x-rays there were negative for fractures following her stay there in [place] was transferred to [facility] for rehab then came down with influenza and admitted to [facility] [place] right foot with extensive bruising but this is resolving left foot grossly wnl Plan PT, OT patient wants to return to [facility] at d/c Admission and Anticipated Discharge Date Admission Date: November 03, 2022 Subjective patient still quite weak appetite fair - still on full liquids no trouble swallowing such asked if she wants to advance diet and she wants to give it a try cough remains very little sputum is short of breath with walking denies dyspnea at rest had 1 chest PT session - states "I didn't like it" tele - a.fib, rates low 100s at rest Review of Systems Review of Systems: gen - weak/fatigued/tired, appetite is fair at best; no fever/chills but does c/o being cold cv - no cp, no tightness, no orthopnea, no edema lungs - cough, congestion; minimal sputum; mild PRABHAKAR GI - no pain/nausea/emesis Physical Exam Physical Exam: gen - very thin, cachectic, muscle wasting; coughing; looks same as yesterday mouth - MM remain dry neck - no JVD heart - irregularly irregular, s1 s2, no murmur; tachy lungs - diffuse crackles b/l extending 1/[address] up back - minimal improvement from yesterday's exam; no wheeze back - kyphosis abd - soft NT ND BS+ ext - no edema, pulses 2+ b/l Results & Data Results & Data ([facility]) Vital Signs (Past 12 Hours) Vital Signs Temp Pulse Pulse Pulse Resp BP Pulse Ox 11/06/22 20:46 36.5 C 88 16 93 11/06/22 20:38 113/73 11/06/22 19:21 76 93 11/06/22 15:00 108 H 11/06/22 15:33 36.6 C 105 H 18 117/78 96 11/06/22 14:59 102 H 18 93 11/06/22 12:02 36.4 C L 90 16 129/84 92 O2 Del Method 11/06/22 20:46 Room Air 11/06/22 20:38 12/28/22 19:21 Room Air 11/06/22 15:00 11/06/22 15:33 Room Air 11/06/22 14:59 Room Air 11/06/22 12:02 Room Air Laboratory Results Laboratory Results - last 24 hr 11/05/22 11/06/22 11/06/22 Unknown 05:56 05:56 WBC 24.11 H RBC 3.95 Hgb 12.6 Hct 36.0 MCV 91.1 MCH 31.9 MCHC 35.0 RDW Std Deviation 46.4 H RDW Coeff of Jian 13.9 Plt Count 843 H MPV 8.5 L Immature Gran % (Auto) 1.9 Neut % (Auto) 84.0 Lymph % (Auto) 7.8 Lawrence % (Auto) 5.8 Eos % (Auto) 0.0 Baso % (Auto) 0.5 Neut # (Auto) 20.24 H Lymph # (Auto) 1.89 Lawrence # (Auto) 1.40 H Eos # (Auto) 0.00 Baso # (Auto) 0.11 Immature Gran # (Auto) 0.47 H Absolute Nucleated RBC 0.04 H Nucleated RBC % (auto) 0.2 Polychromasia 1+ Echinocytes 2+ Acanthocytes (Spur) 2+ Sodium 134 L Potassium 4.4 Chloride 103 Carbon Dioxide 25 Anion Gap 6 BUN 23 Creatinine 0.53 L Est Cr Clr Drug Dosing 45.1 Est GFR ( Amer) 98.9 Est GFR (Non-Af Amer) 85.4 BUN/Creatinine Ratio 43.4 H Glucose 91 Calcium 8.2 L Total Bilirubin 0.7 AST 34 ALT 35 Alkaline Phosphatase 109 H Total Protein 5.6 L Albumin 3.0 L Globulin 2.6 Albumin/Globulin Ratio 1.2 Urine Osmolality 169 L PG Care Time/CCT Total # of Minutes Spent Total Time Spent with Patient: Total time spent is greater than 50% in coordination of care (as documented) at patient's floor/unit and/or counseling patient: Coding Level of Care Code 66972 Subseq Hosp Care Lvl 3 Diagnoses Influenza A J10.1 Pneumonia J18.9 Laterality: right Lung location: middle lobe of lung Pneumonia type: due to unspecified organism SIADH (syndrome of inappropriate ADH production) E22.2 Hyponatremia E87.1 Acute respiratory failure with hypoxia J96.01 Atrial fibrillation I48.91 Elevated troponin R77.8 On apixaban therapy Z79.01 Hypertension I10 Hyperlipidemia E78.5 Leukocytosis D72.829 Thrombocytosis D75.839 Protein calorie malnutrition E46 DVT prophylaxis Z29.9 Injury of foot S99.929A (1) Pneumonia Laterality: right Lung location: middle lobe of lung Pneumonia type: due to unspecified organism Qualified Code(s): J18.9 - Pneumonia, unspecified organism
[2022-11-07] MEDS: PIPERACILLIN/TAZOBACTAM 3.375 GM in DEXTROSE 5% 100 ML IV SCH ×4 (00:26→15:32)
[2022-11-07] MEDS: SODIUM CHLOR 7% 4 ML NEB NEB SCH (06:58)
[2022-11-07 08:11] LABS: Basophils # (auto) 0.11 K/uL (0-0.2); Basophils % (auto) 0.6 %; Eosinophils # (auto) 0.01 K/uL (0-0.50); Eosinophils % (auto) 0.1 %; Hematocrit (blood only) 38.3 % (34.1-44.9); Hemoglobin 13.6 g/dl (12.0-16.0); Immature Granulocytes # (auto) 0.35 K/uL (0.00-0.02); Immature Granulocytes % (auto) 2.1 %; Lymphocytes # (auto) 2.08 K/uL (1.2-3.4); Lymphocytes % (auto) 12.3 %; Mean Corpuscular Hemoglobin 31.6 pg (25.0-34.0); Mean Corpuscular Hgb Conc 35.5 g/dL (32.0-36.0); Mean Corpuscular Volume 88.9 fL (80.0-100.0); Mean Platelet Volume 8.4 fL (9.4-12.3); Monocytes # (auto) 1.37 K/uL (0.24-0.82); Monocytes % (auto) 8.1 %; Neutrophils # (auto) 13.05 K/uL (1.4-6.5); Neutrophils % (auto) 76.8 %; Platelet Count 886 K/uL (130-400); RDW Standard Deviation 45.2 fL (36.4-46.3); Red Blood Count 4.31 M/uL (3.93-5.22); White Blood Count 16.97 K/ul (4.8-10.8)
[2022-11-07 08:42] LABS: BUN Creatinine Ratio 37.3 (10-20); C Reactive Protein 3.87 mg/dl (0-0.5); Calcium 8.4 mg/dl (8.5-10.1); Creatinine Clr Calc Pharmacy 41.5 ml/min; Est GFR (African American) 95.5 ml/min; Est GFR (Non-African American) 82.4 ml/min; Potassium 3.9 mmol/L (3.5-5.1)
[2022-11-07] MEDS: METOPROLOL TARTRATE 25 MG TAB PO SCH ×2 (09:03→20:35)
[2022-11-07] MEDS: CHOLECALCIFEROL 1,000 UNITS 25 MCG TAB PO SCH (09:03)
[2022-11-07] MEDS: SODIUM CHLORIDE 1 GM TABLET PO SCH ×3 (09:03→20:36)
[2022-11-07] MEDS: ADVANCED PROBIOTIC 1250 MG CAPSULE PO SCH (09:04)
[2022-11-07] MEDS: HEPARIN SOD 5,000 UNIT/0.5 ML VIAL SQ SCH ×2 (09:04→20:35)
[2022-11-07] MEDS: CALCIUM 600MG + VIT D 400 IU TAB PO SCH (09:04)
[2022-11-07] MEDS: OSELTAMIVIR PHOSPHATE SUSP 30 MG/5 ML UDP PO SCH ×2 (09:10→20:36)
[2022-11-07] MEDS: guaiFENesin 600 MG TABCR PO SCH ×2 (10:24→20:36)
[2022-11-07] MEDS: CEROVITE ADV FORMULA TAB PO SCH (12:33)
[2022-11-07] MEDS: PANTOprazole 40 MG TAB PO SCH (20:35)
[2022-11-07] MEDS: ASPIRIN 325 MG ECTAB PO SCH (20:35)
[2022-11-07] MEDS: SIMVASTATIN 20 MG TAB PO SCH (20:35)
--- NOTE | 2022-11-07 22:29 | Hospitalist Progress Note ---
Date of Service November 07, 2022 Assessment & Plan (1) Influenza A: Plan: Day #34 of tamiflu plan 5 day course appears to have secondary bacterial infection - cont IV abx - see below supportive care (2) Pneumonia: Plan: CT chest with b/l basilar pneumonia bacterial superinfection in setting of her influenza Mucoid impaction also seen lower airways no obvious PEs seen dopplers of legs without DVT despite several days of IV cefepime her leukocytosis remains and she feels poorly will stop cefepime, change to IV zosyn added saline nebs BID added chest PT twice daily added mucinex 600mg BID consider duonebs although no wheezing noted on yesterday or today's exams will check procal crp in AM (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): Plan: lowest Na 119, now 134 improved s/p 3% saline, fluid restriction to 1500cc/day, and NaCL tabs 1gm TID (4) Hyponatremia: Plan: as above in #3 low Na was also likely contributing to fatigue in addition to #1, #2 (5) Acute respiratory failure with hypoxia: Plan: 2nd to fluA infection and suspected bacterial superinfection slow improvement (6) Atrial fibrillation: Plan: Typically is on metoprolol TID + cardizem 180mg daily per admission records The diltiazem is on hold For some reason had been receiving atenolol Changed atenolol to metoprolol Have titrated the metoprolol Plan 75mg BID starting in am Eliquis on hold ? uncertain reason - resume in am if stable and patient improving (7) Elevated troponin: Plan: due to myocardial demand ischemia in setting of Flu A infection, etc no evidence of ACS (8) On apixaban therapy: Plan: for a.fib - see #6 above (9) Hypertension: Plan: controlled (10) Hyperlipidemia: Plan: continue statin (11) Leukocytosis: Plan: 2nd to bacterial pneumonia/superinfection trend CBC daily (12) Thrombocytosis: Plan: likely reactive to her infection serial CBCs if the high platelet count persists -- check Fe studies (Fe def can cause thrombocytosis) (13) Protein calorie malnutrition: Plan: unknown amount of weight loss of late she has muscle wasting is cachectic etc add MVI add boost (14) DVT prophylaxis: Plan: heparin 5000 BID (15) Injury of foot: Plan: had injured both feet at home in [place] severe pain both feet and difficulty walking was initially hospitalized at [facility] she states her x-rays there were negative for fractures following her stay there in [place] was transferred to [facility] for rehab then came down with influenza and admitted to [facility] right foot with extensive bruising but this is resolving left foot grossly wnl Plan PT, OT patient wants to return to [facility] at d/c Admission and Anticipated Discharge Date Admission Date: November 03, 2022 Subjective 87 yo female reports feeling improved. She is not back at baseline however. Review of Systems Review of Systems: All systems reviewed & are unremarkable except as noted in HPI & below Physical Exam Physical Exam: The patient is awake, alert and oriented 3, well developed and well nourished, normocephalic and atraumatic, lying in bed and in no acute distress. HEENT--PERRL, EOMI, mucous membranes and oropharynx dry. Neck--supple. No JVD. No bruits. Thyroid normal, trachea midline, no adenopathy. Heart--normal S1 and S2. No murmurs, rubs or gallops. Lungs--remains coarse No respiratory distress, no accessory muscle use. Abdomen--normal bowel sounds and soft. Nontender. Nondistended, no hernias or masses, no organomegaly. Extremities--no cyanosis or clubbing. No edema. Dermatologic--normal skin turgor, normal color, no abnormal lymph nodes, no rash. Neurologic--cranial nerves II through XII grossly intact. Rheumatologic--limited exam Psychiatric--normal affect. Results & Data Results & Data ([facility]) Vital Signs (Past 12 Hours) Vital Signs Temp Pulse Pulse Resp BP Pulse Ox O2 Del Method 11/07/22 20:45 Room Air 11/07/22 20:31 36.7 C 92 H 16 115/68 93 Room Air 11/07/22 11:11 Room Air 11/07/22 11:11 84 11/07/22 10:38 36.3 C L 95 H 19 110/70 94 Room Air PG Care Time/CCT Total # of Minutes Spent Total Time Spent with Patient: Total time spent is greater than 50% in coordination of care (as documented) at patient's floor/unit and/or counseling patient: Coding Level of Care Code 70203 Subseq Hosp Care Lvl 3 Diagnoses Influenza A J10.1 Pneumonia J18.9 Laterality: right Lung location: middle lobe of lung Pneumonia type: due to unspecified organism SIADH (syndrome of inappropriate ADH production) E22.2 Hyponatremia E87.1 Acute respiratory failure with hypoxia J96.01 Atrial fibrillation I48.91 Elevated troponin R77.8 On apixaban therapy Z79.01 Hypertension I10 Hyperlipidemia E78.5 Leukocytosis D72.829 Thrombocytosis D75.839 Protein calorie malnutrition E46 DVT prophylaxis Z29.9 Injury of foot S99.929A Time Spent (min) 35 Comment chart review (1) Pneumonia Laterality: right Lung location: middle lobe of lung Pneumonia type: due to unspecified organism Qualified Code(s): J18.9 - Pneumonia, unspecified organism
[2022-11-08 08:01] LABS: Creatinine Clr Calc Pharmacy 46.8 ml/min; Est GFR (African American) 99.6 ml/min; Est GFR (Non-African American) 85.9 ml/min
[2022-11-08] MEDS: CALCIUM 600MG + VIT D 400 IU TAB PO SCH (08:30)
[2022-11-08] MEDS: CHOLECALCIFEROL 1,000 UNITS 25 MCG TAB PO SCH (08:30)
[2022-11-08] MEDS: HEPARIN SOD 5,000 UNIT/0.5 ML VIAL SQ SCH (08:30)
[2022-11-08] MEDS: CEROVITE ADV FORMULA TAB PO SCH (08:30)
[2022-11-08] MEDS: SODIUM CHLORIDE 1 GM TABLET PO SCH ×2 (08:30→15:10)
[2022-11-08] MEDS: METOPROLOL TARTRATE 25 MG TAB PO SCH (08:30)
[2022-11-08] MEDS: guaiFENesin 600 MG TABCR PO SCH (08:35)
[2022-11-08] MEDS: ADVANCED PROBIOTIC 1250 MG CAPSULE PO SCH (08:35)
[2022-11-08] MEDS: PIPERACILLIN/TAZOBACTAM 3.375 GM in DEXTROSE 5% 100 ML IV SCH ×3 (08:38→17:36)
[2022-11-08 09:30] LABS: Hematocrit (blood only) 41.4 % (34.1-44.9); Hemoglobin 14.4 g/dl (12.0-16.0); Mean Corpuscular Hemoglobin 32.4 pg (25.0-34.0); Mean Corpuscular Hgb Conc 34.8 g/dL (32.0-36.0); Mean Platelet Volume 8.5 fL (9.4-12.3); Platelet Count 759 K/uL (130-400); RDW Coefficient of Variation 13.9 % (11.5-14.5); RDW Standard Deviation 46.6 fL (36.4-46.3); Red Blood Count 4.45 M/uL (3.93-5.22); White Blood Count 12.11 K/ul (4.8-10.8)
[2022-11-08 09:40] LABS: C Reactive Protein 5.14 mg/dl (0-0.5)
[2022-11-08] MEDS: OSELTAMIVIR PHOSPHATE SUSP 30 MG/5 ML UDP PO SCH (09:57)
--- NOTE | 2022-11-08 16:52 | Discharge Summary ---
Date of Service November 08, 2022 Admission HPI Per Admitting Provider The patient is a 87-year-old female with a past medical history including chronic anticoagulation for atrial fibrillation, hyperlipidemia, hypertension, COPD, GERD and hyponatremia. She presents to the emergency department as noted above, with primary concerns related to hypoxia, hyponatremia, influenza A positivity and an elevated troponin. Significant abnormal laboratories: WBC 22.19, platelet 662, sodium 125, glucose 74, serum osmolality 256, urine osmolality 446, highly sensitive troponin 18.9, with follow-up 25.2, and albumin 3.2. Influenza A positive Patient is COVID-19 negative and influenza B and RSV negative Principal Diagnosis Influenza A Discharge Exam The patient is awake, alert and oriented 3, well developed and well nourished, normocephalic and atraumatic, lying in bed and in no acute distress. HEENT--PERRL, EOMI, mucous membranes and oropharynx dry. Neck--supple. No JVD. No bruits. Thyroid normal, trachea midline, no adenopathy. Heart--normal S1 and S2. No murmurs, rubs or gallops. Lungs--remains coarse No respiratory distress, no accessory muscle use. Abdomen--normal bowel sounds and soft. Nontender. Nondistended, no hernias or masses, no organomegaly. Extremities--no cyanosis or clubbing. No edema. Dermatologic--normal skin turgor, normal color, no abnormal lymph nodes, no rash. Neurologic--cranial nerves II through XII grossly intact. Rheumatologic--limited exam Psychiatric--normal affect. Discharge Data Allergies Allergy/AdvReac Type Severity Reaction Status Date / Time No Known Allergies Allergy Unverified 11/03/22 22:17 Consultations 11/03/22 19:36 ED Decision to Admit Stat 11/05/22 10:09 Consult Nephrology Routine Ordered Studies 11/06/22 11:18 CT angio chest PE protocol Urgent 11/06/22 13:39 US venous doppler LE Routine Hospital Course (1) Influenza A: complete 5 day course of tamiflu. appears to have secondary bacterial infection - cont IV abx - see below supportive care (2) Pneumonia: CT chest with b/l basilar pneumonia bacterial superinfection in setting of her influenza Mucoid impaction also seen lower airways no obvious PEs seen dopplers of legs without DVT despite several days of IV cefepime her leukocytosis remains and she feels poorly will stop cefepime, changed to IV zosyn. WBC improved after this change. Patient will complete 7 days of antibitics will add cipro and flagyl for 4 additional days at discharge. 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): lowest Na 119, now 134 improved s/p 3% saline, fluid restriction to 1500cc/day, and NaCL tabs 1gm TID (4) Hyponatremia: as above in #3 low Na was also likely contributing to fatigue in addition to #1, #2 (5) Acute respiratory failure with hypoxia: 2nd to fluA infection and suspected bacterial superinfection slow improvement (6) Atrial fibrillation: Typically is on metoprolol TID + cardizem 180mg daily per admission records The diltiazem is on hold For some reason had been receiving atenolol Changed atenolol to metoprolol Have titrated the metoprolol Plan 75mg BID starting in am Eliquis jennifer be resumed at discharge (7) Elevated troponin: due to myocardial demand ischemia in setting of Flu A infection, etc no evidence of ACS (8) On apixaban therapy: for a.fib - see #6 above (9) Hypertension: controlled (10) Hyperlipidemia: continue statin (11) Leukocytosis: 2nd to bacterial pneumonia/superinfection trend CBC daily (12) Thrombocytosis: likely reactive to her infection serial CBCs if the high platelet count persists -- check Fe studies (Fe def can cause thrombocytosis) (13) Protein calorie malnutrition: unknown amount of weight loss of late she has muscle wasting is cachectic etc add MVI add boost (14) DVT prophylaxis: heparin 5000 BID (15) Injury of foot: had injured both feet at home in [place] severe pain both feet and difficulty walking was initially hospitalized at [place] [facility] she states her x-rays there were negative for fractures following her stay there in [place] was transferred to [facility] for rehab then came down with influenza and admitted to [facility] right foot with extensive bruising but this is resolving left foot grossly wnl Plan PT, OT patient wants to return to [facility] at d/c Total Time Total Time Spent Total Time Spent (In Minutes): 32 Discharge Plan Discharge Items Patient Disposition: Transfer Inpatient Rehab Fac Reason For Visit: ACUTE RESP FAILURE W/ HYPOXIA, FLU A, HYPONATREMIA Discharge Diagnosis: hyponatremia Activity: Resume your previous activity Non-emergency contact: Primary Care Provider Call non-emergency contact if: you have any medication questions Follow-up/Referrals: Jose Mobley [Primary Care Provider] - Diet: Regular Fluids: 1500ml (6 cups) Diet Texture: Dental soft (bite-sized) Addtl Attending Provider Instructions: will complete about 7 days of antibiotics. you have 1 more day of tamiflu. Recommend followup with PCP in 1-2 weeks. Pending Studies at Discharge: No Stand-Alone Forms: [facility] [employer], Smoking Cessation Medications and DC Order Prescriptions: New oseltamivir [Tamiflu] 6 mg/mL Suspension For Reconstitution 30 mg PO BID Qty: 2 0RF ciprofloxacin HCl 750 mg tablet 750 mg PO BID Qty: 8 0RF Rx Instructions: First dose 12/30 PM metronidazole 500 mg tablet 500 mg PO Q8H 4 Days Qty: 12 0RF metoprolol tartrate 25 mg Tablet 75 mg PO BID Qty: 0 0RF sodium chloride 1,000 mg Tablet,Soluble 1,000 mg PO BID Qty: 0 0RF cholecalciferol (vitamin D3) 25 mcg (1,000 unit) Capsule 2,000 unit PO DAILY Qty: 0 0RF Continued acetaminophen [Tylenol] 325 mg Tablet 650 mg PO Q4 PRN (Reason: Pain) polyethylene glycol 3350 [Miralax] 17 gram Powder In Packet 17 g PO .QLUNCH PRN (Reason: Constipation) atorvastatin 10 mg Tablet 10 mg PO HS ondansetron HCl 4 mg Tablet 4 mg PO Q4 PRN (Reason: Nausea) sennosides-docusate sodium [Senna-S] 8.6-50 mg Tablet 1 tab-cap PO DAILY PRN (Reason: Constipation) Rx Instructions: Give @ lunch guaifenesin 100 mg/5 mL Liquid 200 mg PO QID benzonatate 100 mg Capsule 100 mg PO TID PRN (Reason: Cough) pantoprazole 40 mg tablet,delayed release (DR/EC) 49 mg PO HS docusate sodium 100 mg Capsule 100 mg PO BID zinc sulfate 220 mg Capsule 220 mg PO DAILY fluticasone propionate 110 mcg/actuation Hfa Aerosol Inhaler 2 puff INHALATION BID levalbuterol tartrate 45 mcg/actuation Hfa Aerosol Inhaler 2 inh INHALATION Q4 Eliquis 2.5 mg tablet 2.5 mg PO Q12 Discontinued diltiazem HCl 180 mg capsule,extended release 24hr 180 mg PO DAILY lisinopril 5 mg tablet 5 mg PO DAILY cefdinir 300 mg Capsule 300 mg PO Q12H Rx Instructions: LAST DOSE TO BE GIVEN TONIGHT @2359 metoprolol tartrate 25 mg Tablet 25 mg PO Q8 Discharge Orders: Discharge Order (Routine); Ordered 11/08/22 Ordered By: Jose Gonzalez Admission Data Admit Date/Time: 11/03/22 19:57 Attending Provider: Jose Gonzalez Admit Provider: Bulmaro Jj Primary Care Provider: Jose Mobley Other Providers: Bulmaro Jj ; Aba Leyva ; [facility] Other Interventions: Discharge Summary Assessment (RN) Last Done: 11/08/22 15:35 Coding Level of Care Code D/C DAY MANAGEMENT >30 MINS Diagnoses Influenza A J10.1 Pneumonia J18.9 Laterality: right Lung location: middle lobe of lung Pneumonia type: due to unspecified organism SIADH (syndrome of inappropriate ADH production) E22.2 Hyponatremia E87.1 Acute respiratory failure with hypoxia J96.01 Atrial fibrillation I48.91 Elevated troponin R77.8 On apixaban therapy Z79.01 Hypertension I10 Hyperlipidemia E78.5 Leukocytosis D72.829 Thrombocytosis D75.839 Protein calorie malnutrition E46 DVT prophylaxis Z29.9 Injury of foot S99.929A
== END 2022-11-08 18:06 | DRG 193 ==
LOC: ED 16:35 → SUATTDRO 19:57 → EDINP 19:57 → 4W 22:26